=== PATIENT | female | born 1940 | race Caucasian/White ===

== ENCOUNTER 2022-01-17 16:55 | Emergency (ER) | payer OTHER, SELFPAY ==
[2022-01-17 17:07] VITALS: BP 127/71; PULSE 84; RESP 18; TEMP 36.3; O2SAT 100; BMI 28.2
--- NOTE | 2022-01-17 17:44 | CRLHL7_ITS ---
For Patients: As a result of the Century Cures Act, medical imaging exams and procedure reports are released immediately into your electronic medical record. You may view this report before your referring provider. If you have questions, please contact your health care provider. INDICATION: Shortness of breath with exertion, back surgery 1 week ago.. TECHNIQUE: CT chest PE was acquired with 95 cc Isovue 370 IV contrast. COMPARISON: CT of the chest from April 15, 2020. FINDINGS: Heart and vasculature: Contrast opacification of the pulmonary arterial tree is adequate. No pulmonary embolism is identified in the right lower lobar artery branching into the segmental arteries (4/100-117). The. Heart size is normal. Thoracic aorta and pulmonary artery are normal in caliber. Lungs and pleura: Incidentally noted azygos lobe. Stable right anterior pleural calcification with adjacent lobulated pulmonary opacification (5/73). Stable 2 millimeter nodule in the left lower lobe(5/123). no pleural effusions, pleural thickening, or pneumothorax. Lymph nodes/mediastinum: No mediastinal, hilar, or axillary adenopathy. Chest wall: No masses. Upper abdomen: No acute or significant findings. Limited evaluation due to streak artifact from thoracolumbar hardware. Large right renal cyst is noted. Bones: Thoracolumbar fusion hardware is identified. No acute fractures or dislocations are identified. IMPRESSION: Pulmonary embolus in the right lower lobar artery branching into the segmental arteries. No definite evidence for right heart strain. Please note that all CT scans at this facility use dose modulation, iterative reconstruction, and/or weight-based dosing when appropriate to reduce radiation dose to as low as reasonably achievable. Dictated by Michelle Garcia MD @ 01/17/2022 7:29:05 PM (Electronically Signed)
--- NOTE | 2022-01-17 17:47 | ED.SOB ---
HPI - SOB/Dyspnea General Chief Complaint: Shortness of Breath/Dyspnea Stated Complaint: POSSIBLE BLOODCLOT - POST SURGERY Time Seen by Provider: 01/17/22 16:58 History of Present Illness HPI Narrative: This 81-year-old female is sent here from clinic because of shortness of breath with exertion. She had back surgery 8 days ago and states that she feels better in that regard but noticed a few days after the surgery that she became increasingly short of breath with any kind of exertion. At rest she is maintaining normal vital signs and 100 % oximetry. She does not report any unilateral limb swelling or pain. She is not on any blood thinners and does not have a prior history of blood clot. She does not report any chest pain. Related Data Home Medications Medication Instructions Recorded Confirmed acetaminophen 500 mg capsule 1,000 mg PO Q6H PRN 01/17/22 01/17/22 alendronate 70 mg/75 mL oral 70 mg PO QWEEK 01/17/22 01/17/22 solution aspirin 81 mg tablet,delayed 81 mg PO QDAY 01/17/22 01/17/22 release bupropion HCl 150 mg 24 hr tablet, 300 mg PO QAM tab 01/17/22 01/17/22 extended release cholecalciferol PO 01/17/22 lisinopril 5 mg tablet 5 mg PO QDAY 01/17/22 01/17/22 methocarbamol 750 mg tablet 750 mg PO Q6H tab 01/17/22 01/17/22 oxycodone 5 mg capsule 5 mg PO Q4H PRN cap 01/17/22 01/17/22 pramipexole 0.125 mg tablet 0.125 mg PO TID 01/17/22 01/17/22 rosuvastatin 5 mg tablet 5 mg PO QDAY 01/17/22 01/17/22 venlafaxine 150 mg 150 mg PO QDAY 01/17/22 01/17/22 capsule,extended release 24 hr Previous Rx's Medication Instructions Recorded apixaban 5 mg (74 tabs) tablets in See Rx Instructions PO .COMPLEX 01/17/22 a dose pack (Eliquis DVT-PE Treat #74 ea 30D Start) Allergies Allergy/AdvReac Type Severity Reaction Status Date / Time No Known Drug Allergies Allergy Verified 01/17/22 14:23 Review of Systems Status of ROS: Reports: 10 or more systems reviewed and unremarkable except as noted in History and below Narrative: Constitutional: No fevers, no weight gain or loss. Eyes: No discharge. No vision changes. HENT: No congestion, no sore throat, no ear pain. Cardiovascular: No chest pain, no palpitations. Respiratory: No wheezes, no cough. Shortness of breath with exertion. Gastrointestinal: No abdominal pain, no vomiting, no diarrhea. Genitourinary: No dysuria, no hematuria. Musculoskeletal: Normal range of motion. Skin: No rashes, no pruritis. Neurological: No dizziness, weakness, sensory change, speech change. Endo/Heme/Allergies: No bruising or bleeding. No polydipsia. Pysch: no suicidality, no anxiety, no insomnia. All other systems reviewed and are negative. [facility] Surgical History (Updated 01/17/22 @ 18:03 by Leda Rojo RN) History of back surgery Social History Smoking Status: Never smoker Do you use any of these nicotine containing products: None How often do you have a drink containing alcohol: never How often do you have six or more drinks on one occasion: Never AUDIT-C Alcohol total score: 0 Non-prescribed substance use: denies use Exam Narrative: Exam Narrative: Constitutional: Well-developed, well-nourished, no acute distress. HEENT: Normocephalic, atraumatic. Neck: Normal range of motion. Nontender. Supple. Heart: Regular. No murmurs. Normal rate. Intact distal pulses. Lungs: Clear to auscultation. No chest discomfort. No wheezes, rhonchi, or rales. Abdomen: Normal bowel sounds. Nontender. No rebound tenderness. Genitalia: Deferred. Back: She is wearing a back brace. Extremities: Normal range of motion. No injury. Skin: Intact. No rash. Warm. No erythema or pallor. Neurologic: No altered sensation. No weakness. Alert and oriented. Psychiatric: No suicidality. No anxiety or depression. No insomnia. Nursing notes and vitals signs are reviewed. Const: Vital Signs, click to edit/add: Vital Signs - 24 hr 01/17/22 17:07 01/17/22 19:54 Temperature 97.4 F L Pulse Rate [Left P ulse Oximeter] 84 Respiratory Rate 18 16 Blood Pressure [Le ft Upper Arm] 127/71 124/110 H Pulse Oximetry 100 100 Course Vital Signs Vital signs: Initial Vital Signs Temperature 97.4 F L 01/17/22 17:07 Temperature Source Temporal Artery Scan 01/17/22 17:07 Pulse Rate 84 01/17/22 17:07 Respiratory Rate 18 01/17/22 17:07 Blood Pressure 127/71 01/17/22 17:07 Blood Pressure Mean 89 01/17/22 17:07 Blood Pressure Position Sitting 01/17/22 17:07 Pulse Oximetry 100 01/17/22 17:07 Oxygen Delivery Method 01/17/22 17:07 Vital Signs Temperature 97.4 F L 01/17/22 17:07 Pulse Rate 84 01/17/22 17:07 Respiratory Rate 18 01/17/22 17:07 Blood Pressure 127/71 01/17/22 17:07 Pulse Oximetry 100 01/17/22 17:07 Temperature 97.4 F L 01/17/22 17:07 Pulse Rate 84 01/17/22 17:07 Respiratory Rate 16 01/17/22 19:54 Blood Pressure 124/110 H 01/17/22 19:54 Pulse Oximetry 100 01/17/22 19:54 MDM - SOB/Dyspnea MDM Narrative Medical decision making narrative: This patient is sent here from clinic because of shortness of breath with exertion. While at rest she has normal vital signs. She recently had a surgery to her back and is at risk for a blood clot. A D-dimer was not ordered given the recent surgery in the likelihood that it would be elevated regardless of a blood clot present. An IV was established and a CT scan of the chest with contrast was completed. This does show evidence of thromboembolism in the right lower lobe. Patient continues to have normal vital signs while at rest. She is okay to return home but needs anticoagulation. She did receive the 1st dose of Eliquis 10 mg and a prescription for a starter pack of Eliquis is provided. The patient is instructed to follow-up with her primary physician or return if worsening. Imaging Data CT scan - chest: Radiologist's impression: Pulmonary embolus in the right lower lobar artery branching into the segmental arteries. No definite evidence for right heart strain. Discharge Plan Discharge Clinical Impression: Pulmonary embolism Condition: Unchanged Instructions: Blood Thinners (ED) Additional Instructions: Pulmonary embolism in the right lower lobe. Take Eliquis as prescribed. Follow up with primary physician in 1-2 weeks or return if worsening symptoms occur. Prescriptions: New Eliquis DVT-PE Treat 30D Start 5 mg (74 tabs) tablets,dose pack See Rx Instructions PO .COMPLEX Qty: 74 0RF Rx Instructions: orally per package directions No Action bupropion HCl 150 mg tablet extended release 24 hr 300 mg PO QAM 0RF cholecalciferol PO 0RF methocarbamol 750 mg tablet 750 mg PO Q6H 0RF pramipexole 0.125 mg tablet 0.125 mg PO TID 0RF rosuvastatin 5 mg tablet 5 mg PO QDAY 0RF venlafaxine 150 mg capsule,extended release 24hr 150 mg PO QDAY 0RF oxycodone 5 mg capsule 5 mg PO Q4H PRN0RF lisinopril 5 mg tablet 5 mg PO QDAY 0RF acetaminophen 500 mg capsule 1,000 mg PO Q6H PRN0RF alendronate 70 mg/75 mL solution 70 mg PO QWEEK 0RF aspirin 81 mg tablet,delayed release (DR/EC) 81 mg PO QDAY 0RF Follow Up/Referrals: Savanna Feldman PA-C [Primary Care Provider] - Stand Alone Forms: iFulfillment Info Instructions
[2022-01-17 19:54] VITALS: BP 124/110; RESP 16; O2SAT 100
[2022-01-17] MEDS: APIXABAN 5 MG TABLET 10 MG PO (20:06)
== END 2022-01-17 20:19 | disposition home or self-care (01) ==
PROVIDERS: Emergency Provider Emergency Medicine Emergency Medical Services; PCP Physician Assistant Medical
DX: I26.99 Other pulmonary embolism without acute cor pulmonale (principal)
CPT/HCPCS: 71260; 99284; 99285; A9270; Q9967

== ENCOUNTER 2022-03-05 09:53 | Outpatient (CLI) | payer OTHER, SELFPAY | END 2022-03-05 09:54 | disposition home or self-care (01) | LOC: LKVREF 09:54 | PROVIDERS: PCP Physician Assistant Medical; Visit Provider Physician Assistant Medical | DX: Z00.00 Encounter for general adult medical examination without abnormal findings (principal); R06.00 Dyspnea, unspecified; I26.99 Other pulmonary embolism without acute cor pulmonale | CPT/HCPCS: 84484 ==

== ENCOUNTER 2022-04-11 14:15 | Outpatient (CLI) | payer OTHER, SELFPAY ==
[2022-04-11 21:33] LABS: Iron* 66 ug/dL (37-170)
[2022-04-11 21:42] LABS: Percent Iron Saturation 18 % (20-50); Total Iron Binding Capacity 361 ug/dL (265-497)
[2022-04-11 22:23] LABS: Vitamin B12* 328 pg/mL (243-894)
== END 2022-04-11 14:16 | disposition home or self-care (01) ==
PROVIDERS: PCP Physician Assistant Medical; Visit Provider Physician Assistant Medical
DX: D64.9 Anemia, unspecified (principal); R10.9 Unspecified abdominal pain
CPT/HCPCS: 82607; 83540; 83550

== ENCOUNTER 2022-04-19 07:52 | Outpatient (CLI) | payer OTHER, SELFPAY ==
--- NOTE | 2022-04-19 08:00 | CRLHL7_ITS ---
For Patients: As a result of the Century Cures Act, medical imaging exams and procedure reports are released immediately into your electronic medical record. You may view this report before your referring provider. If you have questions, please contact your health care provider. Indication: Hematuria Technique: Noncontrast CT abdomen and pelvis Please note that all CT scans at this facility use dose modulation, iterative reconstruction, and/or weight-based dosing when appropriate to reduce radiation dose to as low as reasonably achievable. Comparison: 12/16/2018 Findings: Mild scarring within the right lower lobe medially. No pleural effusion. Stable 2-3 millimeter nodule left lower lobe. Normal noncontrast enhanced liver. Gallbladder normal without calcified gallstones or biliary obstruction. Normal pancreas. Spleen normal. Left adrenal gland and left kidney normal. Similar exophytic cyst arising from the upper pole of the right kidney measuring 7.5 cm and exophytic cyst arising from the lateral right kidney measuring 3.5 cm. Dense vascular calcifications. No renal calcifications. No hydronephrosis. Normal ureters and bladder. No pelvic soft tissue mass. Colonic diverticulosis. No diverticulitis. No evidence of appendicitis. No free air or free fluid. No abscess. No adenopathy. Fatty atrophy of the right anterior gluteal musculature. Thoracolumbar fusion through the iliac bones. Impression: No renal, ureteral or bladder stones. No hydronephrosis or perinephric stranding. Stable simple exophytic cysts right kidney. Chronic colonic diverticulosis without diverticulitis. Please note that all CT scans at this facility use dose modulation, iterative reconstruction, and/or weight-based dosing when appropriate to reduce radiation dose to as low as reasonably achievable. Dictated by Shaquille Del Toro MD @ 04/19/2022 11:28:14 AM (Electronically Signed)
== END 2022-04-19 07:53 | disposition home or self-care (01) ==
LOC: CT 07:53
PROVIDERS: PCP Physician Assistant Medical; Visit Provider Physician Assistant Medical
DX: R31.9 Hematuria, unspecified (principal); N28.1 Cyst of kidney, acquired; K57.30 Diverticulosis of large intestine without perforation or abscess without bleeding
CPT/HCPCS: 74176

== ENCOUNTER 2022-12-24 08:34 | Outpatient (CLI) | payer OTHER, SELFPAY | END 2022-12-24 08:35 | disposition home or self-care (01) | PROVIDERS: PCP Physician Assistant Medical; Visit Provider Physician Assistant Medical | DX: E78.5 Hyperlipidemia, unspecified (principal); I10 Essential (primary) hypertension; R06.00 Dyspnea, unspecified | CPT/HCPCS: 80061; 83880 ==

== ENCOUNTER 2022-12-28 07:39 | Outpatient (CLI) | payer OTHER, SELFPAY ==
--- NOTE | 2022-12-28 08:00 | CRLHL7_ITS ---
For Patients: As a result of the Century Cures Act, medical imaging exams and procedure reports are released immediately into your electronic medical record. You may view this report before your referring provider. If you have questions, please contact your health care provider. INDICATION: Leg pain. History of pulmonary emboli. COMPARISON: September 16, 2020 TECHNIQUE: A compression venous ultrasound exam was performed of the left lower extremity using galloway-scale imaging, color Doppler and spectral Doppler analysis. FINDINGS: Sonographic imaging of the left lower extremity demonstrates normal compressibility and color Doppler venous blood flow within the common femoral vein, deep femoral vein, and the proximal greater saphenous vein. Within the thigh, the femoral vein is patent and compressible. At a lower level, the popliteal and posterior tibial veins also show normal compressibility and color Doppler venous blood flow. Minor`s cyst left popliteal fossa measuring 8.9 x 2.0 x 1.6 cm. This has enlarged compared to the prior study. There is a venous varix in the region left popliteal fossa as well. Limited imaging of the contralateral groin demonstrates a normal spectral waveform and color Doppler venous blood flow within the right common femoral vein. IMPRESSION: Normal venous ultrasound exam. No evidence of deep vein thrombosis within the left lower extremity. Enlarging Minor`s cyst left popliteal fossa. Dictated by Douglas Stahl MD @ 12/28/2022 9:44:12 AM (Electronically Signed)
== END 2022-12-28 07:40 | disposition home or self-care (01) ==
LOC: US 07:40
PROVIDERS: PCP Physician Assistant Medical; Visit Provider Physician Assistant Medical
DX: M79.89 Other specified soft tissue disorders (principal); M71.22 Synovial cyst of popliteal space [Baker], left knee; M79.605 Pain in left leg
CPT/HCPCS: 93971

== ENCOUNTER 2023-01-01 08:13 | Outpatient (CLI) | payer OTHER, SELFPAY ==
--- NOTE | 2023-01-01 08:30 | CRLHL7_ITS ---
For Patients: As a result of the Century Cures Act, medical imaging exams and procedure reports are released immediately into your electronic medical record. You may view this report before your referring provider. If you have questions, please contact your health care provider. [facility] ??? MOBILE IMAGING SERVICES MYOCARDIAL PERFUSION SCAN, 01/01/2023 CLINICAL HISTORY: 82-year-old female. Shortness of breath. Hypertension. Elevated lipids. Family history of heart disease. Height 4 feet 10 inches, weight 142 pounds. TECHNIQUE: (Resting SPECT and stress gated SPECT with wall motion and ejection fraction) Stress: Pharmacologic ???regadenoson (walking protocol, 0.4 mg IV) Dose (Stress/Rest): 32.5 mCi technetium-labeled sestamibi/8.8 mCi technetium-labeled sestamibi Comparison: None FINDINGS: There is good uptake of activity by the left ventricle. No left ventricular enlargement is noted. End-diastolic volume 51 mL. End-systolic volume 20 mL. There are no significant fixed or reversible defects identified. The gated images demonstrate a normal left ventricular ejection fraction of 61%. No regional wall motion abnormalities are identified. IMPRESSION: 1) No evidence of significant myocardial ischemia or infarction. 2) Normal left ventricular ejection fraction of 61%. This study was jointly reviewed by Radiology and Cardiology. MATT HUBBARD M.D. Diagnostic/Nuclear Medicine Radiologist [email or web address] Transcribed: 6:31 p.m. ALEX ZARAGOZA M.D. Department of Cardiology RD/Dictated by: Matt Hubbard MD @ 01/01/2023 2:01:00 PM (Electronically Signed)
[2023-01-01] MEDS: SODIUM CHLORIDE 0.9 % (FLUSH) 10 ML SYRINGE IVF (09:56)
[2023-01-01] MEDS: REGADENOSON 0.4 MG/5 ML SYRINGE IVP (09:56)
[2023-01-01 10:02] VITALS: BP 131/77; PULSE 79; RESP 16
--- NOTE | 2023-01-01 12:02 | W.PM.STED ---
Stress Test Note Date Date of test: 01/01/23 Providers Primary care provider: Savanna Feldman Stress test physician: Salbador Burden Stress Test Note Stress test ordered: Lexiscan Indication for test: Shortness of Breath Stress test medicine: Lexiscan Results discussion: Patient is very nice lady presents for the above test, risks benefits and side effects of Lexiscan are discussed with her she would like to proceed pretest EKG. Normal sinus rhythm with a ventricular rate of 56, blood pressure 134 on 78. Standard infusion of Lexiscan is done over 5 minute. , her maximum heart rate was 100, she had no symptoms. And did well with that test. Review of the test show no acute changes suggestive of ischemia there is no dysrhythmias, and she recovered normally. Impression: Negative electrographic portion of Lexiscan, successfully administered Follow up suggested: Patient will be discharged home, nuclear portion will be read by nuclear Medicine, clinical correlation with this will be needed by ordering physician, patient left this testing facility in good condition back to baseline.
== END 2023-01-01 10:35 | disposition home or self-care (01) ==
LOC: STRESS 08:13
PROVIDERS: PCP Physician Assistant Medical; Visit Provider Family Medicine
DX: R06.02 Shortness of breath (principal)
CPT/HCPCS: 78452; 93016; 93017; A9500; J2785

== ENCOUNTER 2023-03-28 09:30 | Outpatient (RCR) | payer OTHER, SELFPAY ==
--- NOTE | 2023-01-22 11:57 | OT.OPOE ---
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.11XA Date of Onset about 5 weeks ago Other Precautions Medications: alendronate 70 mg PO .Every 7 Days aspirin 81 mg PO QDAY bupropion HCl (Wellbutrin SR) 100 mg PO QAM cholecalciferol (vitamin D3) 2 ,000 units PO DAILY escitalopram oxalate (Lexapro) 10 mg PO QDAY lisinopril 20 mg PO QDAY pramipexole 0.25 mg PO TID rosuvastatin 5 mg PO QDAY venlafaxine ER 37.5 mg PO QDAY Other Conditions NEW: L wrist pain-tingling and numbness Other PMH includes but is not limited to: Osteopenia; Other specified disorders of bone density and structure; Osteoarthritis; Obstructive sleep apnea syndrome: 12/2022- saw ENT; Severe obstructive sleep apnea; new machine ordered and patient reports using this every night. Pain in left knee; Hypertension; Hyperlipidemia; Fibrocystic breast disease (FCBD); Diffuse cystic mastopathy of unspecified breast; Degeneration of intervertebral disc of lumbar region; Other intervertebral disc degeneration, lumbar region; Anxiety disorder, unspecified; Allergic rhinitis; Right hip pain; Depression, unspecified; Anemia; Tubular adenoma; Unspecified rotator cuff tear or rupture of unspecified shoulder, not specified as traumatic; Spinal stenosis; Restless legs syndrome; Renal cyst: of kidney, acquired. Pain in lower extremity due to sciatica; Cardiac murmur, unspecified Echocardiogram 11/23/2022- shoe aortic stenosis 1.Normal left ventricular size , mildly increased wall thickness, EF 77% 2.2. Aortic valve is calcified , moderate to severe stenosis and mild regurgitation. 3.Mitral valve is sclerotic, trace mitral regurgitation 4.Tricuspid valve is normal. Medical/Functional History Medical History Reviewed Yes Prior Level of Function/Mobility Patient is a pleasant 82 year old active female who lives alone and is able to meet all her ADL/IADL daily needs Independently. She ambulates w /o a device and enjoys spending time with her family (grandchildren, great- grandchildren), quilting and gardening. 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 I just woke up in the middle of the night with tingling and numbness in the tips of my fingers Pain Assessment Pain Present Pain Present Pain Reported Location Left Wrist Description Burning,Radiating,Stabbing, Shooting Intensity 10 Range of Motion and Strength Shoulder Range of Motion and Strength Shoulder Range of Motion and Strength ROM is WNL, Strength is 3+/5 and functional in bilateral shoulders Elbow/Forearm Range of Motion and Strength Elbow/Forearm Range of Motion and ROM is WNL, Strength is 3+/5 Strength and functional in bilateral elbows Wrist Range of Motion and Strength Wrist Range of Motion and Strength ROM is WNL/functional with no reports of patient unable to do a daily task/ADL due to limited ROM, Strength limited, see Oil [employer] Drafter Strengths/Hand pinches Hand/Finger/Thumb Range of Motion and Strength Hand/Finger/Thumb Range of Motion and R hand: wrist flexion 45 Strength degrees and extension 40 degrees L hand: wrist felxion 45 degrees and extension 60 degrees *measured on the ulnar side of the hand Hand Pinch/[employer]fter Strength Hand Right [employer]fter Strength Position 1 (lbs) 14 [employer]fter Strength Position 2 (lbs) 11 Lateral Pinch Strength (lbs) 5 Three Point Pinch (lbs) 5 Tip Pinch Strength (lbs) 4 Left [employer]fter Strength Position 1 (lbs) 11 [employer]fter Strength Position 2 (lbs) 10 Lateral Pinch Strength (lbs) 5 Three Point Pinch (lbs) 5 Tip Pinch Strength (lbs) 4 OT Objective Data Skin/Wounds/Edema Comments Skin is intact, very mild edema present on the palm side of the wrist, no wounds, visible arthritis in multiple digits Additional Information Objective Additional Information Therapist reviewed the results of X-ray: Findings: Narrowing and spurring at the 1st carpometacarpal joint with multiple chronic surrounding ossicles. Milder narrowing and spurring at the radial scaphoid and triscaphe joints. Hypertrophic changes at the distal radioulnar joint. Chondrocalcinosis of the TFCC. Degenerative changes at the metacarpophalangeal joints . No acute fracture. No erosions. Impression: Multifocal degenerative joint disease. Upper Extremity Special Tests Degenerative Arthritis Hand Trapeziometacarpal Joint Grind Test Positive Left,Positive Right Median Nerve-Carpal Tunnel Wrist Phalen Test Negative Right,Positive Left Wrist Tinel Test left OT Problems Problems Problems Decreased Strength,Pain, Sensory Sensitivity,Lifting, Gripping,Pinching Other Problems Opening Containers Patient Potential Good Assessment Assessment Assessment This is a pleasant 82 year old R hand dominant female who presented to her PCP on January 16 with reports of left wrist/hand/forearm pain. Provider wrote order for skilled OT to treat for L hand carpal tunnel symptoms. It is patient's goal to avoid having surgery on the L hand, she previously had carpal tunnel release surgery on the R hand 7 years prior. No acute injury, symptoms just began one night when she was in bed (about 5 weeks ago). Plan for conservative management through skilled OT using modalities, teaching patient activity modifications, developing a HEP and improving strength. Patient purchased a pre-jay/over the counter wrist brace about 3 weeks ago and has been wearing this at night. Therapist instructed her to wear this with activity that involves heavy use of the L hand (example: laundry, cooking, quilting and gardening). Occupational Therapy Treatment Plan - OP Potential Rehabilitation Potential Good Barriers Barriers to goal attainment none Set Goals Goals Set with Patient Yes Goals Goals 1. With patient attending therapy sessions 1-2x/week, therapist will use modalities & manual treatment allowing patient to have increased active movement (without increased pain symptoms) when participating in her leisure activities (quilting and gardening). 2. Patient will wean from wearing the L hand/wrist brace w/o from 8 hours during the daytime hours to less than 4 hours 3. Patient will be Indep with a HEP 4. 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 from 11 lbs to >14 lbs in order to return to everyday tasks w/o fear of dropping items Target Date 8 Weeks: By Mar 19 2023 Treatment Plan Treatment Plan Evaluation,Edema Control, Iontophoresis,Joint Mobilization,Manual Therapy, Ultrasound,Therapeutic Exercise,Therapeutic Activities,Self Care/Home Management,Education Expected Frequency 1-2x Week Expected Duration 8-10 Weeks Comment Summary Patient reports that she doesn 't sleep on her side, she sleeps on her back every night as she is wearing a CPAP at [facility] Home Program Home Program Home Program Initiated Home Program Specifics Patient was given a handout for Median Nerve Glides but will need review at next session. Handout given for finger/hand stretching; Tendon Glides and Thera-Putty for Hand/[employer]fter Strengthening Certification Certification I Certify That: Therapy Services Provided, Therapy Plan Established, Therapy Plan Reviewed Recertification Information Recertification Information Initial Certification Date 01/22/23 Recertification Due Date 04/22/23 Provider Signature Shows Agreement With POC & Medical Necessity Physician Comment/Change Comment or Changes Physician NPI Number #
== END 2023-05-23 15:17 | disposition home or self-care (01) ==
PROVIDERS: PCP Physician Assistant Medical; Visit Provider Physician Assistant Medical
DX: M25.532 Pain in left wrist (principal); Z51.89 Encounter for other specified aftercare
CPT/HCPCS: 97035; 97110; 97140; 97166; X5282

== ENCOUNTER 2023-04-15 10:00 | Day surgery (SDC) | payer OTHER, SELFPAY ==
[2023-04-15] VITALS (7 sets, daily range): BP systolic 121–150; BP diastolic 61–94; PULSE 58–68; RESP 14–18; TEMP 36.7–36.9; O2SAT 96–100; BMI 26.9
--- OUTSIDE RECORDS SUMMARY | 2023-04-15 10:02 | XMS_ITS | Continuity of Care Document ---
Author Name Unknown Organization [facility] Address [address] [place] [address] Phone Care Team Providers Care Cpc Name Role Phone Kasia Alex Unavailable Unavail able Medications Medication Instructions Dosage Effective Dates (start - stop) Status Comments Do Not Prescribe tri pt: meds, calls , appts etc are all to be done at tri - Active Procedures Procedure Date PSF, Thoracic - AR PSF - Additional Level(s) - AR Laminectomy, Thoracic 1-2 Segments (Sten osis) - AR Posterior Instrumentation, 3-6 Segments - PA PSF, Thoracic PSF - Additional Level(s) Laminectomy, Thoracic 1-2 Segments (Sten osis) Posterior Instrumentation, 3-6 Segments Allograft, Morcelized, and/or BMP Autograft, From Same Incision TLIF - Includes PSF at the same level - PA HARRIS FACETC/FRMT ARTHRD LUM 1 PSF - Additional Level(s) - AR Posterior Instrumentation, 3-6 Segments - PA PEEK/ Cage/ Implant, For Interbody Fusio n - PA TLIF - Includes PSF at the same level Ju HARRIS FACETC/FRMT ARTHRD LUM 1 PSF - Additional Level(s) Posterior Instrumentation, 3-6 Segments PEEK/ Cage/ Implant, For Interbody Fusio n PSF, Lumbar - PA PSF - Additional Level(s) - PA 20 Lami, Facetectomy/Foraminotomy, Lumbar ( Stenosis) Lami, Facetectomy/Foraminotomy - Additio nal Level(s) - PA Posterior Instrumentation, 3-6 Segments - PA Iliac Bolts / Pelvic Fixation - PA PEEK/ Cage/ Implant, For Interbody Fusio n - PA PSF, Lumbar PSF - Additional Level(s) ALIF / OLIF Anterior Lumbar Interbody Fu lisa - Cosurgeon Anterior Interbody Fusion - Additional L evel(s) Lami, Facetectomy/Foraminotomy, Lumbar ( Stenosis) Lami, Facetectomy/Foraminotomy - Additio nal Level(s) Posterior Instrumentation, 3-6 Segments PEEK/ Cage/ Implant, For Interbody Fusio n Iliac Bolts / Pelvic Fixation 0 Autograft, From Same Incision 0 Allograft, Morcelized, and/or BMP Advance Directives Directive Yes / No Effective Date File Name No Information Encounters Encounter Description Practice Location Reason(s) For Visit Diagnoses Date Provider Providers Copied on Encounter [facility], [address], [place], [id number], [place] tel:[phone] [facility] No Information Saw Pedroza. [facility], [address], [address], [place], [place], [id number], [place]. tel:[phone] Referring Provider: Jose Maria Marina, [facility] [address], [place], [address]. tel:[phone] [facility], [address], [place], [id number], [place] tel:[phone] [facility] No Information Laina Moise. [facility], [address], [place], [place], [address], [place]. tel:[phone] Referring Provider: Jose Maria Marina, [facility] [address], [place], [address]. tel:[phone] [facility], [address], [place], [id number], [place] tel:[phone] [facility] No Information Saw Pedroza. [facility], [address], [address], [place], [place], [address], [place]. tel:[phone] Referring Provider: Jose Maria Marina, [facility] [address], [place], [address]. tel:[phone] [facility], [address], [place], [id number], [place] tel:[phone] [facility] No Information Laina Moise. [facility], [address], [place], [place], [address], [place]. tel:[phone] Referring Provider: Jose Maria Marina, [facility] [address], [place], [address]. tel:[phone] [facility], [address], [place], [id number], [place] tel:[phone] [facility] No Information Jonny Ledesma. [facility], [address], [place], [place], [address], [place]. tel:[phone] Referring Provider: Jose Maria Marina, [facility] [address], [place], [address]. tel:[phone] [facility], [address], [place], [id number], [place] tel:[phone] [facility] No Information Laina Moise. [facility], [address], [place], [place], [address], [place]. tel:[phone] Referring Provider: Jose Maria Marina, [facility] [address], [place], [address]. tel:[phone] [facility], [address], [place], [place], [id number], tel:[phone] [facility] No Information Laina Moise. [facility], [address], [place], [place], [address], [place]. tel:[phone] Family History Family Member Type Diagnosis Age At Onset No Information Payers Payer name Insurance type Covered libertarian ID Authoriza ticristofer(s) [employer] Medicare Gold Choice Beatriz TAVERAS [id number] Social History Type Description Quantity Date Captured Comments Sex Female Smoking Status No Information Chief Complaint And Reason For Visit No Information Reason For Referral Reason For Referral No Information History Of Present Illness Encounter Date Complaint History Of Prese nt Illness No Information Functional Status Date Functional Assessmen t No Information Instructions Date Instruction Additional Infor mation No Information Assessments Type Assessment Date No Information Patient Care Teams Name Effective Dates (start - stop) Status Members No Information
--- OUTSIDE RECORDS SUMMARY | 2023-04-15 10:03 | XMS_ITS | Continuity of Care Document ---
Author Name Unknown Organization [facility] Address [address] [place] [address] Phone Care Team Providers Care Awning Hanger Supervisor Name Role Phone Kasia Alex Unavailable Unavail able Medications Medication Instructions Dosage Effective Dates (start - stop) Status Comments Do Not Prescribe tri pt: meds, calls , appts etc are all to be done at tri - Active Procedures Procedure Date PSF, Thoracic - [place] PSF - Additional Level(s) - [place] Laminectomy, Thoracic 1-2 Segments (Sten osis) - [place] Posterior Instrumentation, 3-6 Segments - PA PSF, Thoracic PSF - Additional Level(s) Laminectomy, Thoracic 1-2 Segments (Sten osis) Posterior Instrumentation, 3-6 Segments Allograft, Morcelized, and/or BMP Autograft, From Same Incision TLIF - Includes PSF at the same level - PA HARRIS FACETC/FRMT ARTHRD LUM 1 PSF - Additional Level(s) - [place] Posterior Instrumentation, 3-6 Segments - PA PEEK/ [...] [address], [place], [id number], [place] tel:[phone] [facility] No Information Saw Pedroza. [facility], [address], [address], [place], [place], [address], [place]. tel:[phone] Referring Provider: Jose Maria Marina, [facility] [address], [place], [address]. tel:[phone] [facility], [address], [place], [id number], [place] tel:[phone] [facility] No Information Laina Moise. [facility], [address], [place], [place], [address], [place]. tel:[phone] Referring Provider: Jose Maria Marina, [facility] [address], [place], [address]. tel:[phone] [facility], [address], [place], [id number], [place] tel:[phone] [facility] No Information Saw Pedroza. [facility], [address], [address], [place], [place], [address], [place]. tel:[phone] Referring Provider: Jose Maria Marina, [facility] [address], [place], [address]. tel:[phone] [facility], [address], [place], [id number], [place] tel:[phone] [facility] No Information Laina Moise. [facility], [address], [place], [place], [address], [place]. tel:[phone] Referring Provider: Jose Maria Marina, [facility] [address], [place], [address]. tel:[phone] [facility], [address], [place], [id number], [place] tel:[phone] [facility] No Information Jonny Ledesma. [facility], [address], [place], [place], [address], [place]. tel:[phone] Referring Provider: Jose Maria Marina, [facility] [address], [place], [address]. tel:[phone] [facility], [address], [place], [id number], [place] tel:[phone] [facility] No Information Laina Moise. [facility], [address], [place], [place], [id number], [place]. tel:[phone] Referring Provider: Jose Maria Marina, [facility] [address], [place], [address]. tel:[phone] [facility], [address], [place], [place], [id number], tel:[phone] [facility] No Information Laina Moise. [facility], [address], [place], [place], [address], [place]. tel:[phone] Family History Family Member Type Diagnosis Age At Onset No Information Payers Payer name Insurance type Covered constitution party ID Authoriza ticristofer(s) [employer] Medicare Gold Choice Beatriz TAVERAS [id number] Social History Type Description Quantity Date [...]
[2023-04-15] MEDS: BUPIVACAINE 0.5% 30 ML INJECTION (10:30)
[2023-04-15] MEDS: ETHYL CHLORIDE 1 APPLICATION 1 APPLIC TOPICAL (10:30)
[2023-04-15] MEDS: NEOMYCIN/BACITRACIN/POLYMYXIN B 1 APPLIC TOPICAL (11:43)
--- NOTE | 2023-04-15 11:43 | PM.ORPRC ---
Procedure Note Date of procedure: 04/15/23 Procedure: PREOPERATIVE DIAGNOSIS: 1. Left carpal tunnel syndrome POSTOPERATIVE DIAGNOSIS: 1. Left carpal tunnel syndrome PROCEDURE: 1. Left open carpal tunnel release SURGEON: Joshua Cruz MD. AUTO ENGINE MECHANIC: Mitchell Rojo ANESTHESIA: Local anesthetic (50:50 mixture of 1% lidocaine with epi and 0.5% marcaine plain) - 10ml total IMPLANTS: None EBL: 2 mL TOURNIQUET: None COMPLICATIONS: None evident INDICATIONS: The patient is a pleasant 82-year-old female who has experienced left hand numbess/tingling affecting the radial 3.5 digits for multiple months. It has progressively gotten worse. Nonoperative management has been tried and failed, and therefore surgery was recommended. DESCRIPTION OF PROCEDURE: Following a thorough discussion of risks, benefits, and alternatives consent was obtained and the operative extremity was marked. The patient was brought to the operating room and placed supine on the operating table. Local anesthesia induction was undertaken in preop holding. No antibiotics were administered as this was planned to be a local case only. Proper time-out was performed identifying proper patient, site, and procedure. The operative extremity was prepped and draped in the appropriate sterile fashion using ChloraPrep. An incision was made in line with the radial border of the ring finger beginning 1 cm distal to the distal wrist crease and progressing for another 2.5cm distal. Caution was taken to stay proximal to Cook's cardinal line. Sharp incision through the skin, subcutaneous tissue, and palmar fascia was performed. The thenar musculature was bluntly elevated off the transverse carpal ligament. The ligament was directly visualized, and divided sharply with a 15 blade. This was released from its most proximal to the most distal extent. Metzenbaum scissor was also utilized to release the fascia extension proximally. We confirmed complete release of the transverse carpal ligament. Closure was performed with 4-O nylon in interrupted fashion. Soft dressings were applied, and the patient was transferred to the recovery room in stable condition. PLAN: 1. Encourage elevation of the operative extremity. 2. Range of motion of the fingers and hand/wrist as tolerated. 3. Ibuprofen/acetaminophen and/or oxycodone as needed for pain control. 4. Follow up with PA visit or nurse visit in 12-16 days for wound check and suture removal.
--- NOTE | 2023-04-15 11:49 | SUR.PREOP ---
SAME DAY SURGERY LOCAL INJECTION SITE VERIFICATION WAS PERFORMED BY SURGEON/PA AND PATIENT PRIOR TO LOCAL ANESTHETIC BEING INJECTED TO OPERATIVE SITE. 1030
== END 2023-04-15 12:31 | disposition home or self-care (01) ==
PROVIDERS: PCP Physician Assistant Medical; Visit Provider Orthopaedic Surgery Sports Medicine
PROC: (CPT 64721; principal; 2023-04-15 12:00)
DX: G56.02 Carpal tunnel syndrome, left upper limb (principal)
CPT/HCPCS: 64721; J0665

== ENCOUNTER 2023-06-19 13:51 | Outpatient (CLI) | payer OTHER, SELFPAY ==
--- OUTSIDE RECORDS SUMMARY | 2023-06-19 13:53 | XMS_ITS | Continuity of Care Document ---
Author Name Unknown Organization [facility] Address [address] [place] [address] Phone Care Team Providers Care Rubber Stamp Dies Inspector Name Role Phone Kasia Alex Unavailable Unavail able Medications Medication Instructions Dosage Effective Dates (start - stop) Status Comments Do Not Prescribe tri pt: meds, calls , appts etc are all to be done at tri - Active Procedures Procedure Date PSF, Thoracic - [place] PSF - Additional Level(s) - [place] Laminectomy, Thoracic 1-2 Segments (Sten osis) - [place] Posterior Instrumentation, 3-6 Segments - PA PSF, Thoracic PSF - Additional Level(s) Laminectomy, Thoracic 1-2 Segments (Sten osis) Posterior Instrumentation, 3-6 Segments Allograft, Morcelized, and/or BMP Autograft, From Same Incision TLIF - Includes PSF at the same level - PA HARRIS FACETC/FRMT ARTHRD LUM 1 PSF - Additional Level(s) - [place] Posterior Instrumentation, 3-6 Segments - PA PEEK/ [...] [address], [place], [id number], [place] tel:[phone] [facility] No Information Saw Pedroza. [facility], [address], [address], [place], [place], [address], [place]. tel:[phone] Referring Provider: Jose Maria Marina, [facility] [address], [place], [address]. tel:[phone] [facility], [address], [place], [id number], [place] tel:[phone] [facility] No Information Laina Moise. [facility], [address], [place], [place], [address], [place]. tel:[phone] Referring Provider: Jose Maria Marina, [facility] [address], [place], [address]. tel:[phone] [facility], [address], [place], [address], [place] tel:[phone] [facility] No Information Saw Pedroza. [facility], [address], [address], [place], [place], [address], [place]. tel:[phone] Referring Provider: Jose Maria Marina, [facility] [address], [place], [address]. tel:[phone] [facility], [address], [place], [address], [place] tel:[phone] [facility] No Information Laina Moise. [facility], [address], [place], [place], [address], [place]. tel:[phone] Referring Provider: Jose Maria Marina, [facility] [address], [place], [address]. tel:[phone] [facility], [address], [place], [address], [place] tel:[phone] [facility] No Information Jonny Ledesma. [facility], [address], [place], [place], [address], [place]. tel:[phone] Referring Provider: Jose Maria Marina, [facility] [address], [place], [address]. tel:[phone] [facility], [address], [place], [id number], [place] tel:[phone] [facility] No Information Laina Moise. [facility], [address], [place], [place], [address], [place]. tel:[phone] Referring Provider: Jose Maria Marina, [facility] [address], [place], [address]. tel:[phone] [facility], [address], [place], [place], [address], tel:[phone] [facility] No Information Laina Moise. [facility], [address], [place], [place], [address], [place]. tel:[phone] Family History Family Member Type Diagnosis Age At Onset No Information Payers Payer name Insurance type Covered constitution party ID Authoriza ticristofer(s) [employer] Medicare Gold Choice Beatriz TAVERAS [id number] Social History Type Description Quantity Date [...]
--- NOTE | 2023-06-19 14:00 | CRLHL7_ITS ---
For Patients: As a result of the Century Cures Act, medical imaging exams and procedure reports are released immediately into your electronic medical record. You may view this report before your referring provider. If you have questions, please contact your health care provider. INDICATION: Pain in legs COMPARISON: 12/28/2022 TECHNIQUE: Rowe-scale, color, and duplex Doppler imaging of the examined veins. Compression and augmentation attempted where anatomically and clinically feasible. FINDINGS: Laterality: Left Examined veins: Common femoral, femoral, popliteal, peroneal, posterior tibial Greater saphenous The peroneal veins are duplicated. Nonocclusive thrombus in 1 of the left peroneal veins. There is occlusive thrombus in the left greater saphenous vein from the mid thigh to the calf, extending in the varicose veins. Thrombus appears acute to subacute. Otherwise, the examined veins are patent with normal color Doppler flow and a normal venous waveform on duplex Doppler. Where possible, there is normal compression and normal augmentation of flow. Popliteal fossa Minor cyst that measures 5.7 x 2.6 x 1.3 cm. The right common femoral vein was sampled for comparison and is normal. No waveform abnormalities to suggest central occlusion. IMPRESSION: 1. Nonocclusive deep vein thrombus in a duplicated left peroneal vein in the calf. 2. Occlusive superficial venous thrombus from the mid left greater saphenous vein and associated varicose veins through the calf. 3. Left popliteal fossa Minor cyst. Dictated by Rosa Benson MD @ 06/19/2023 3:04:29 PM (Electronically Signed)
[2023-06-19 15:11] LABS: Hematocrit 43.5 % (33.0-51.0); Hemoglobin* 14.1 gm/dL (12.0-16.0); Mean Corpuscular HGB Conc 32 gm/dL (32-36); Mean Corpuscular Hemoglobin 31 pg (26-34); Mean Corpuscular Volume 95 fL (80-100); Platelet Count* 226 K/uL (140-440); Red Blood Count 4.56 m/uL (4.00-5.20)
[2023-06-19 15:15] LABS: INR 0.91 (0.91-1.10); Partial Thromboplastin Time* 28 Seconds (23-33); Prothrombin Time 12.7 Seconds
[2023-06-19 15:16] LABS: Slide Review Reflex No
[2023-06-19 15:37] LABS: Albumin* 4.7 g/dL (3.3-5.0); Chloride* 106 mmol/L (96-114); Potassium* 4.2 mmol/L (3.6-5.1); Sodium* 142 mmol/L (135-149)
[2023-06-19 15:39] LABS: Anion Gap 6 mEq/L (7-15); Bilirubin Total* 0.5 mg/dL (0.1-1.5); Carbon Dioxide* 30 mmol/L (20-32); Creatinine* 0.7 mg/dL (0.5-1.5); Estimated Glomerular Filt Rate 87 ml/min
[2023-06-19 15:40] LABS: Alanine Aminotransferase* 20 U/L (4-35); Alkaline Phosphatase* 113 U/L (40-150); Aspartate Amino Transferase* 33 U/L (12-35); Blood Urea Nitrogen* 19 mg/dL (7-30); Calcium* 9.4 mg/dL (8.4-10.6); Glucose* 78 mg/dL (60-115)
== END 2023-06-19 13:52 | disposition home or self-care (01) ==
PROVIDERS: PCP Physician Assistant Medical; Visit Provider Emergency Medicine
DX: M79.669 Pain in unspecified lower leg (principal); I82.402 Acute embolism and thrombosis of unspecified deep veins of left lower extremity; I82.492 Acute embolism and thrombosis of other specified deep vein of left lower extremity; I82.409 Acute embolism and thrombosis of unspecified deep veins of unspecified lower extremity
CPT/HCPCS: 36415; 80053; 85027; 85610; 85730; 93971

== ENCOUNTER 2023-11-11 11:07 | Outpatient (CLI) | payer OTHER, SELFPAY ==
--- OUTSIDE RECORDS SUMMARY | 2023-11-11 11:11 | XMS_ITS | Clinical Summary ---
Author Name Unknown Organization [facility] Address [address] [address] Care Team Providers Care Lead Electrician Name Role Phone Tip Barth APRN, CNP Primary Care Provid er Source Comments You are receiving this document as you are listed as the primary care provider,follow-up provider, or the patient has been referred to you for consultation.This is in compliance with the Medicare and[facility] EHR Incentive Program,which states Providers who transition their patient to another setting of careor provider of care or refers their patient to another provider of care shouldprovide summary care record for each transition of care or referral. [facility] Allergies No known active allergies Medications Medication Sig Dispensed Refills Start Date End Date Status lisinopril (ZESTRIL) 5 MG tablet Take 5 mg by mouth daily (every 24 hours). 01/31/2016 Active pramipexole (MIRAPEX) 0.125 MG tablet Take 0.125 mg by mouth 3 times daily. 02/06/2016 Active cholecalciferol (VITAMIN D3) 1000 units tablet Take 1,000 Units by mouth three times a day. Active alendronate (FOSAMAX) 10 MG tablet Take 70 mg by mouth once a week. Active acetaminophen (TYLENOL) 325 MG tablet Take 325-650 mg by mouth every 4 hours as needed for Pain. Active buPROPion (WELLBUTRIN XL) 150 MG 24 hour release tablet Take 150 mg by mouth daily. 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 Overview: LW Modifier: surgery 2004 LW Onset: ; DJD Foot Asymptomatic varicose veins 10/04/2004 Overview: LW Modifier: surgery LW Onset: ; Varicose Veins Resolved Problems Problem Noted Date Diagnosed Date Resolved Date Symptomatic menopausal or fe male climacteric states 10/04/2004 02/17/2006 Overview: LW Onset: ; Menopause Immunizations Name Administration Dates Next Due Td 12/06/1994 Social History Tobacco Use Types Packs/Day Years Used Date Smoking Tobacco: Never Smokeless Tobacco: Never Alcohol Use Standard Drinks/Week Comments No 0 (1 standard drink = 0.6 oz pur e alcohol) Sex and Gender Information Value Date Recorded Sex Assigned at Not on file Gender Identity Not on file Sexual Orientation Not on file Last Filed Vital Signs Vital Sign Reading Time Taken Comments Blood Pressure 180/88 05/09/2021 3:20 PM CDT Pulse 76 05/09/2021 3:20 PM CDT Temperature 36.6 ??C (97.8 ??F) 08/24/2021 1:27 PM CS T Respiratory Rate 18 05/09/2021 3:20 PM CDT Oxygen Saturation 98% 05/09/2021 3:20 PM CDT Inhaled Oxygen Concentration - - Weight 65.8 kg (145 lb) 10/18/2021 9:22 AM CDT Height 144.8 cm (4' 9) 10/18/2021 9:22 AM CDT Body Mass Index 31.38 10/18/2021 9:22 AM CDT Plan of Treatment Upcoming Encounters Date Type Department Care Team (Late st Contact Info) Description 02/12/2024 9:10 AM CDT Appointment [facility] [address] [facility] [place] [phone] Jose Maria Marina MD [address] [facility] [place] [phone] Health Maintenance Due Date Last Done Comments Colonoscopy 10/11/2016 10/12/2011 (Completed) COVID-19 Vaccine ( season) 2023 12/19/2021, 05/27/2021, 09/06/2020, Additional history exists Medicare Annual Wellness Visit 07/08/2023 Dexa 10/04/2023 10/03/2021, 11/17/2019 Influenza (Season Ended) 2024 07/10/2018 DTaP/Tdap/Td (2 - Tdap) 08/21/2028 08/21/19, 12/12/2017, 02/03/2007, Additional history exists Pneumococcal 65+ Yrs Completed 05/10/2016, 01/26/20 10 Zoster/Shingles Completed 06/29/2021, 04/28/2021 HepA Aged Out No longer eligi ble based on patient's age to complete this topic HepB Aged Out No longer eligi ble based on patient's age to complete this topic Hib Aged Out No longer eligi ble based on patient's age to complete this topic IPV (Polio) Aged Out No longer eligi ble based on patient's age to complete this topic MCV4 Aged Out No longer eligi ble based on patient's age to complete this topic Procedures Procedure Name Priority Date/Time Associated Diagnosis Comments DXA BONE DENSITY SPINE/HIP INC VERT FX ASSESS Routine 10/03/2021 3:12 PM CDT Low bone density from Last 3 Months or Most Recently Relevant to Health Maintenance Results * DXA Bone Density Spine/Hip Inc Vert FX Assess (10/03/2021 3:12 PM CDT) Anatomical Region Laterality Modality Spine, Hip Other Narrative 10/04/2021 5:29 PM CDT CLINIC DXA REPORT Patient Name: ??Lashell Moncada Densitometer:HoloStorspeed Discovery A (S/N [id number]) TRIA BONE 5 OSTEOPOROSIS RISK FACTORS FROM PATIENT QUESTIONNAIRE: ?? The patient is a 81 y.o.female: Able to stand easily from a chair without use of the arms: yes. Calcium intake is probably adequate. There is no self-reported personal history of osteoporotic fracture. There is no family history in a first degree relative of hip, pelvis, and/or spine fracture. One self-reported fall(s) over the past 12 months. Osteoporosis documented on a prior bone density test. Current alendronate therapy BONE MINERAL DENSITY: Lumbar spine analysis is excluded due to degenerative sclerosis, surgical hardware, fracture(s), and/or other artifacts Total Hip Bone Mineral Density (gm/cm2): 0.68 (RIGHT) T-Score: -2.1 Z-Score: -0.1 Femoral Neck Bone Mineral Density (gm/cm2): 0.571 T-Score: -2.5 Z-Score: -0.2 FRAX 10 year probability major osteoporotic fracture: 18% 10 year probability hip fracture: 5.8% COMPARISON TO PRIOR STUDY: Date of prior study: 11/17/2019 Lumbar spine change: n/a Total hip change: no significant change outside of densitometer precision error VERTEBRAL FRACTURE ASSESSMENT: No vertebral fractures from T4 through L2 ASSESSMENT: 1. Osteoporosis, based on T-score(s) at the femoral neck 2. Patient is at moderate risk of fracture, based on age, fracture history, bone mineral density at all skeletal sites, and presence or absence of other risk factors. RECOMMENDATIONS: ?? 1. Optimize calcium and vitamin D intake 2. Repeat DXA in 2 years FRAX Explanation: The 10 year risks of hip and major osteoporotic fractures (clinical spine, forearm, hip or shoulder fracture) are calculated by the FRAX algorithm based on femoral neck bone density, age, gender, race/ethnicity, weight, height, previous fracture, parental hip fracture, smoking status, glucocorticoid intake, history of RA, secondary osteoporosis, and high alcohol consumption. FRAX Fracture Risk Categories in terms of major osteoporotic fractures: < 10% = low fracture risk ? 10% and <15% = mildly increased fracture risk ? 15% and <20% = moderately increased fracture risk ? 20% and <30% = high fracture risk ? 30% = very high fracture risk National Osteoporosis Foundation Treatment Guideline A clinician may consider FDA-approved medical therapies in postmenopausal women and men aged 50 years and older, if one or more of the following is present (clinical correlation required and therapy may not always be indicated): 1. The patient has a hip or vertebral fracture. 2. T-score ? -2.5 at the femoral neck, hip, or spine after appropriate evaluation to exclude secondary causes. 3. Low bone mass (T-score between -1.0 and -2.5 at the femoral neck, hip or spine) and a 10-year probability of a hip fracture ? 3% or a 10-year probability of a major osteoporosis-related fracture ? 20% based on the FRAX scores. Rach Francis PA-C RAD DEXA from Last 3 Months or Most Recently Relevant to Health Maintenance Care Teams Lead Electrician Relationship Specialty Start Date End Date Tip Barth, ROLL CONTOUR GRINDER, TORCH BURNER [id number] [place] [phone] PCP - General 10/08/10
--- OUTSIDE RECORDS SUMMARY | 2023-11-11 11:11 | XMS_ITS | Clinical Summary ---
Author Name Unknown Organization [facility] Address [place], [place] [address] Care Team Providers Care Viner Operator Name Role Phone Savanna Feldman PA-C Primary Care Provider [phone] Allergies No known active allergies Medications Medication Sig Dispensed Refills Start Date End Date Status alendronate (FOSAMAX) 70 mg tabletIndications:pos tmenopausal osteoporosis Take 70 mg by mouth once a week in the morning. Take on empty stomach with full glass of water. Do not lie down for 1 hr. Active cholecalciferol (VITAMIN D3) 1,000 unit tabletIndications:pre vention of vitamin D deficiency Take 1,000 units by mouth once daily. Active pramipexole (MIRAPEX) 0.25 mg tabletIndications:res tless leg syndrome Take 0.25 mg by mouth 3 times daily. Active venlafaxine (EFFEXOR XR) 150 mg Extended-Release capsuleIndications:an xiety with depression Take 150 mg by mouth once daily with a meal. Active buPROPion (WELLBUTRIN XL) 150 mg Extended-Release tabletIndications:anx iety with depression Take 300 mg by mouth every morning. Active rosuvastatin (CRESTOR) 5 mg tabletIndications:hyp erlipidemia Take 5 mg by mouth at bedtime. Active lisinopriL (PRINIVIL; ZESTRIL) 20 mg tabletIndications:hyp ertension Take 20 mg by mouth once daily. Hold for SBP < 120 01/12/2022 Active acetaminophen (TYLENOL EXTRA STRGTH) 500 mg tabletIndications:Pos toperative pain after spinal surgery Take 2 Tablets (1,000 mg) by mouth every 6 hours if needed for Pain, Headache or Temp>101.5F (38.6C). Max acetaminophen dose: 4000mg in 24 hrs. 0 02/17/2022 Active apixaban (ELIQUIS) 5 mg tabletIndications:pul monary thromboembolism Take 1 Tablet (5 mg) by mouth 2 times daily. 0 02/17/2022 Active methocarbamoL (ROBAXIN) 750 mg tabletIndications:Pos toperative pain after spinal surgery Take 1 Tablet (750 mg) by mouth every 6 hours if needed for Muscle Spasm. Takes at 0400, 1000, 1600, 2200 20 Tablet 02/17/2022 Active oxyCODONE (ROXICODONE) 5 mg immediate release tabletIndications:Pos toperative pain after spinal surgery Take 1-2 Tablets (5-10 mg) by mouth every 6 hours if needed for Pain (First choice for severe pain.). Takes at 0400, 1000, 1600, 2200 20 Tablet 02/17/2022 Active sennosides-docusate (SENOKOT S) (8.6-50 mg) tabletIndications:Con stipation due to opioid therapy Take 1 Tablet by mouth in the morning and 1 Tablet in the evening. 20 Tablet 02/19/2022 Active melatonin 5 mg capsule Take 1 Capsule (5 mg) by mouth at bedtime if needed. 0 02/19/2022 Active Active Problems Problem Noted Date Diagnosed Date Postoperative pulmonary embolism 02/12/2022 Lumbar back pain 02/10/2022 Status post lumbar spine operation 02/10/2022 Compression fracture of T10 vertebra 02/10/2022 Lumbar stenosis 11/24/2019 Hypertension 11/24/2019 PEPPER (obstructive sleep apnea) 11/24/2019 Depression with anxiety 03/08/2011 Restless legs syndrome (RLS) 03/08/2011 Immunizations Name Administration Dates Next Due Influenza, High-dose Inactivated 07/10/2018 Pneumococcal Poly,23-Valent (Pneumovax) 01/26/20 10 Pneumococcal conj 13-Valent (Prevnar 13) 016 Td (Age >=7 Years) 02/03/2007,12/06/1994 Td, Preservative Free (age >= 7 Years) 8 Tdap 08/21/2018 Zoster (Shingrix-RZV, recombinant) 06/29/2021, Family History Medical History Relation Name Comments Cancer-colon Brother Coronary artery disease Brother Heart attack Brother Asthma Mother Cancer Sister Relation Name Status Comments Brother Mother Sister Social History Tobacco Use Types Packs/Day Years Used Date Smoking Tobacco: Never Smokeless Tobacco: Never Alcohol Use Standard Drinks/Week Comments No 0 (1 standard drink = 0.6 oz pur e alcohol) Social Connections Answer Date Recorded Frequency of Communication with Friends and Fami ly Not on file 02/15/2023 Financial Resource Strain Answer Date R ecorded Difficulty of Paying Living Expenses Not on file 07/08/2021 Difficulty of Paying Living Expenses Not on file 07/08/2021 Sex and Gender Information Value Date Recorded Sex Assigned at Not on file Gender Identity Not on file Sexual Orientation Not on file Obstetrics History Last Filed Vital Signs Vital Sign Reading Time Taken Comments Blood Pressure 133/66 02/15/2023 2:30 PM CDT Pulse 87 02/15/2023 2:30 PM CDT Temperature 36.9 ??C (98.4 ??F) 02/17/2022 8:08 AM CD T Respiratory Rate 14 02/15/2023 2:30 PM CDT Oxygen Saturation 100% 02/17/2022 8:08 AM CDT Inhaled Oxygen Concentration - - Weight 61.7 kg (136 lb) 02/15/2023 2:30 PM CDT Height 149.9 cm (4' 11) 02/09/2022 10:40 PM CDT Body Mass Index 27.47 02/09/2022 10:40 PM CDT Plan of Treatment Health Maintenance Due Date Last Done Comments Depression screening for age 12+ 1952 DEXA/DXA scan for age 65+ 10/01/2007 Medicare Wellness for age 65+ 10/01/2007 BMI (ht and wt on same day) for age 18+ 01/25/2021 01/26/2020, 01/14/2020 COVID-19 vaccine series ( season) 2023 Influenza for age 65+ 03/08/2024 07/10/2018 Tetanus booster 08/21/2028 08/21/2018, 06/0 01/2018, 02/03/2007, Additional history exists Pneumococcal series for age 65+ Completed , 01/25/2010 Tdap Completed 08/21/2018 Zoster (shingles) series for age 50+ Completed 06/29/2021, 04/28/2021 Medical Devices Implanted Type Area Casing Crew Device Identifier Shelf Expiration Date Model / Serial / Lot Bone Matrix 6cc Mikayla Dbf Putty Db - [id number] Implanted:Qty: 1 on 11/24/2019 by Yue Rodrigues MD at [facility] N/A: Lumbar Vertebrae Medtronic Spine/Ortho 08/11/2021 [id number]# / [id number] / Screw Spinal 10.5x90mm Va Cnnltd Tc - [id number] Implanted:Qty: 1 on 11/24/2019 by Jose Maria Marina MD at [facility] N/A: Lumbar Vertebrae Medtronic Spine/Ortho 11/18/2026 [id number]# / / [id number] Screw Spinal 10.5x90mm Va Cnnltd Tc - [id number] Implanted:Qty: 1 on 11/24/2019 by Jose Maria Marina MD at [facility] N/A: Lumbar Vertebrae Medtronic Spine/Ortho 11/18/2026 [id number]# / / [id number] Spacer Lmbr Lg 12mm 8deg Perimeter Alif Peek - [id number] Implanted:Qty: 1 on 11/24/2019 by Jose Maria Marina MD at [facility] N/A: Lumbar Vertebrae Medtronic Spine/Ortho [id number]# / / [id number] Spacer Lmbr Lg 12mm 8deg Perimeter Alif Peek - [id number] Implanted:Qty: 1 on 11/24/2019 by Jose Maria Marina MD at [facility] N/A: Lumbar Vertebrae Medtronic Spine/Ortho [id number]# / / [id number] Screw Spinal 10.5x90mm Va Cnnltd Tc - [id number] Implanted:Qty: 2 on 11/24/2019 by Jose Maria Marina MD at [facility] N/A: Lumbar Vertebrae Medtronic Spine/Ortho [id number]# / / [id number] Screw Lmbr Post 6.5x45mm Solera 5.5/6 Va Cocr - [id number] Implanted:Qty: 6 on 11/24/2019 by Jose Maria Marina MD at [facility] N/A: Lumbar Vertebrae Medtronic Spine/Ortho [id number]# / / Dura Neuro 1x3in Durepair Sut - [id number] Implanted:Qty: 1 on 11/24/2019 by Jose Maria Marina MD at [facility] N/A: Lumbar Vertebrae Medtronic [employer] Technologies 09/04/2020 [id number]# / / [id number] Dura Neuro 5ml Duraseal - [id number] Implanted:Qty: 1 on 11/24/2019 by Jose Maria Marina MD at [facility] N/A: Lumbar Vertebrae Integra [id number] Marivel 06/06/2020# / / [id number] Screw Lmbr Post 7.5x45mm Solera 5.5/6 Va Cocr - [id number] Implanted:Qty: 2 on 11/24/2019 by Jose Maria Marina MD at [facility] N/A: Lumbar Vertebrae Medtronic Spine/Ortho [id number]# / / Bone Matrix 6cc [place] Dbf Putty Dbm - [id number] Implanted:Qty: 1 on 11/24/2019 by Yue Rodrigues MD at [facility] N/A: Lumbar Vertebrae Medtronic Spine/Ortho 08/11/2021 [id number]# / [id number] / Screw Lmbr Post 7.5x40mm Solera 5.5/6 Va Cocr - [id number] Implanted:Qty: 2 on 11/24/2019 by Jose Maria Marina MD at [facility] N/A: Lumbar Vertebrae Medtronic Spine/Ortho [id number]# / / John Lmbr [id number] Legacy 5.5 Cvd Titnm - [id number] Implanted:Qty: 1 on 11/24/2019 by Jose Maria Marina MD at [facility] N/A: Lumbar Vertebrae Medtronic Spine/Ortho 869-021# / / Bone Matrix 6cc [place] Dbf Putty Dbm - [id number] Implanted:Qty: 1 on 11/24/2019 by Yue Rodrigues MD at [facility] N/A: Lumbar Vertebrae Medtronic Spine/Ortho 08/23/2021 [id number]# / [id number] / Bone 1-4mm 30cc Medtronic Chips Canclls Frozen - [id number] Implanted:Qty: 1 on 11/24/2019 by Yue Rodrigues MD at [facility] N/A: Lumbar Vertebrae Medtronic Spine/Ortho 12/20/2023 [id number]# / [id number] / [id number] Bone 1-4mm 60cc Medtronic Chips Canclls Frozen - [id number] Implanted:Qty: 1 on 11/24/2019 by Yue Rodrigues MD at [facility] N/A: Lumbar Vertebrae Medtronic Spine/Ortho 04/08/2024 [id number]# / [id number] / [id number] Spacer Lmbr Lg 14mm 8deg Perimeter Alif Peek - [id number] Implanted:Qty: 1 on 11/24/2019 by Jose Maria Marina MD at [facility] N/A: Lumbar Vertebrae Medtronic Spine/Ortho 11/20/2025 [id number]# / / [id number] Spacer Lmbr Lg 12mm 8deg Perimeter Alif Peek - [id number] Implanted:Qty: 1 on 11/24/2019 by Jose Maria Marina MD at [facility] N/A: Lumbar Vertebrae Medtronic Spine/Ortho 08/26/2027 [id number]# / / [id number] Spacer Lmbr Lg 12mm 8deg Perimeter Alif Peek - [id number] Implanted:Qty: 1 on 11/24/2019 by Jose Maria Marina MD at [facility] N/A: Lumbar Vertebrae Medtronic Spine/Ortho 06/04/2025 [id number]# / / [id number] Description:anterior Bone 1-4mm 30cc Medtronic Chips Canclls Frozen - [id number] Implanted:Qty: 1 on 11/24/2019 by Jose Maria Marina MD at [facility] N/A: Lumbar Vertebrae Medtronic Spine/Ortho 12/19/2023 [id number]# / [id number] / [id number] Set Screw Lmbr Ant 5.5mm Solera Break Off - [id number] Implanted:Qty: 12 on 11/24/2019 by Jose Maria Marina MD at [facility] Explanted:Qty: 4 on 01/09/2022 by Jose Maria Marina MD at [facility] N/A: Lumbar Vertebrae Medtronic Spine/Ortho [id number]# / / Bone 1-4mm 60cc Medtronic Chips Canclls Frozen - [id number] Implanted:Qty: 1 on 01/09/2022 by Jose Maria Marina MD at [facility] Lumbar Vertebrae Medtronic Spine/Ortho 03/16/2026 [id number] / [id number] / [id number] Bone Matrix 6cc Mikayla Dbf Putty Db - [id number] Implanted:Qty: 1 on 01/09/2022 by Jose Maria Mairna MD at [facility] Lumbar Vertebrae Medtronic Spine/Ortho 09/06/2023 [id number] / [id number] / Spacer Spinal [id number] Adaptix - [id number] Implanted:Qty: 1 on 01/09/2022 by Jose Maria Marina MD at [facility] Lumbar Vertebrae Medtronic Spine/Ortho 08/22/2028 [id number] / / [id number] Cnnctr Lmbr 5.5x5.5mm John Connect Variable Titnm Heath - [id number] Implanted:Qty: 3 on 01/09/2022 by Jose Maria Marina MD at [facility] Lumbar Vertebrae Medtronic Spine/Ortho [id number] / / Set Screw Lmbr Std John Connection Titnm - [id number] Implanted:Qty: 6 on 01/09/2022 by Jose Maria Marina MD at [facility] Lumbar Vertebrae Medtronic Spine/Ortho [id number] / / Screw Lmbr Post 5.5x40mm Solera 5.5/6 Va Cocr - [id number] Implanted:Qty: 1 on 01/09/2022 by Jose Maria aMrina MD at [facility] Lumbar Vertebrae Medtronic Spine/Ortho [id number] / / John Lmbr 120x5.5mm Solera 5.5/6 Cvd Co Cr - [id number] Implanted:Qty: 2 on 01/09/2022 by Jose Maria Marina MD at [facility] Lumbar Vertebrae Medtronic Spine/Ortho [id number] / / Set Screw Lmbr Ant 5.5mm Solera Break Off - [id number] Implanted:Qty: 12 on 01/09/2022 by Jose Maria Marina MD at [facility] Explanted:Qty: 2 on 02/12/2022 by Jose Maria Marina MD at [facility] Lumbar Vertebrae Medtronic Spine/Ortho [id number] / / Screw Lmbr Post 6.5x40mm Solera 5.5/6 Va Cocr - [id number] Implanted:Qty: 7 on 01/09/2022 by Jose Maria Marina MD at [facility] Explanted:Qty: 1 on 02/12/2022 by Jose Maria Marina MD at [facility] Lumbar Vertebrae Medtronic Spine/Ortho [id number] / / Bone Matrix 6cc [place] Dbf Putty [facility] - [id number] Implanted:Qty: 1 on 02/12/2022 by Jose Maria Marina MD at [facility] N/A: Spine Medtronic Spine/Ortho 12/29/2023 [id number] / [id number] / Bone 1-4mm 30cc Medtronic Chips Canclls Frozen - [id number] Implanted:Qty: 1 on 02/12/2022 by Jose Maria Marina MD at [facility] N/A: Spine Medtronic Spine/Ortho 07/31/2026 [id number] / [id number] / [id number] Bone Matrix 10cm Mastergraft Strip Dbm - [id number] Implanted:Qty: 1 on 02/12/2022 by Jose Maria Marina MD at [facility] N/A: Spine Medtronic Spine/Ortho 04/06/2024 [id number] / / [id number] [place] Spinal 5.5/6.0mm Cd Horizon Solera Variable Ang - [id number] Implanted:Qty: 1 on 02/12/2022 by Jose Maria Marina MD at [facility] N/A: Spine Medtronic Spine/Ortho 10/31/2026 [id number] / / [id number] Bone Matrix Lg Ii Infuse Bmp - [id number] Implanted:Qty: 1 on 02/12/2022 by Jose Maria Marina MD at [facility] N/A: Spine Medtronic Spine/Ortho 03/07/2023 [id number] / / [id number] Set Screw Lmbr Ant 5.5mm Solera Break Off - [id number] Implanted:Qty: 5 on 02/12/2022 by Jose Maria Marina MD at [facility] N/A: Spine Medtronic Spine/Ortho [id number] / / Cnnctr Lmbr 5.5x5.5mm John Connect Variable Titnm [place] - [id number] Implanted:Qty: 4 on 02/12/2022 by Jose Maria Marina MD at [facility] N/A: Spine Medtronic Spine/Ortho [id number] / / Set Screw Lmbr Std John Connection Titnm - [id number] Implanted:Qty: 2 on 02/12/2022 by Jose Maria Marina MD at [facility] N/A: Spine Medtronic Spine/Ortho [id number] / / John Lmbr 70x5.5mm Solera 5.5/6 Cvd Titnm - [id number] Implanted:Qty: 2 on 02/12/2022 by Jose Maria Marina MD at [facility] N/A: Spine Medtronic Spine/Ortho [id number] / / Screw Lmbr Post 6.5x40mm Solera 5.5/6 Va Cocr - [id number] Implanted:Qty: 4 on 02/12/2022 by Jose Maria Marina MD at [facility] N/A: Spine Medtronic Spine/Ortho [id number] / / Advance Directives * Full Code (Latest Code Status on File) Date Activated Date Inactivated Comments 02/12/2022 10:03 AM 02/17/2022 5:15 PM Question Answer Comments Code Status Discussion: Reviewed Preferences * Full Code Date Activated Date Inactivated Comments 02/10/2022 2:10 AM 02/12/2022 10:03 AM Question Answer Comments Code Status Discussion: Reviewed Preferences * Full Code Date Activated Date Inactivated Comments 01/09/2022 7:17 AM 01/12/2022 1:30 PM Question Answer Comments Code Status Discussion: Reviewed Preferences * Full Code Date Activated Date Inactivated Comments 11/24/2019 9:49 AM 11/29/2019 5:05 PM Care Teams Viner Operator Relationship Specialty Start Date End Date Savanna Feldman PA-C [address] [place] [address] PCP - General Emergency Medicine 01/27/22
--- OUTSIDE RECORDS SUMMARY | 2023-11-11 11:11 | XMS_ITS | Clinical Summary ---
Author Name Unknown Organization [facility] Address [address] [facility] [place] [address] Care Team Providers Care Video Game Engineer Name Role Phone [facility]- Primary Care Provider Allergies No known active allergies Medications Medication Sig Dispensed Refills Start Date End Date Status venlafaxine (EFFEXOR-XR) 150 MG 24 hr capsule Take 150 mg by mouth every 24 hours 01/31/2016 Active aspirin (ASA) 81 MG tablet Take 1 tablet by mouth every 24 hours 12/19/2010 Active buPROPion (WELLBUTRIN XL) 150 MG 24 hr tablet Take 150 mg by mouth every morning Active Vitamin D, Cholecalciferol, 25 MCG (1000 UT) TABS Take 1 tablet by mouth daily as needed Active lisinopril (PRINIVIL/ZESTRIL) 20 MG tablet Take 20 mg by mouth daily Takes at noon Active pramipexole (MIRAPEX) 0.25 MG tablet Take 0.25 mg by mouth 3 times daily Active Active Problems Problem Noted Date Diagnosed Date Bright red blood per rectum 07/27/2019 Social History Tobacco Use Types Packs/Day Years Used Date Smoking Tobacco: Never Smokeless Tobacco: Never Adolescent Education Answer Date Record ed Getting School Help Needed Not on file 04/14 Sex and Gender Information Value Date Recorded Sex Assigned at Not on file Gender Identity Not on file Sexual Orientation Not on file Last Filed Vital Signs Vital Sign Reading Time Taken Comments Blood Pressure 186/88 07/28/2019 8:35 AM ENGINEERING TECHNICAL ANALYST Pulse 77 07/27/2019 7:18 PM ENGINEERING TECHNICAL ANALYST Temperature 35.3 ??C (95.6 ??F) 07/28/2019 8:00 AM CS T Respiratory Rate 18 07/28/2019 8:00 AM ENGINEERING TECHNICAL ANALYST Oxygen Saturation 94% 07/28/2019 8:00 AM ENGINEERING TECHNICAL ANALYST Inhaled Oxygen Concentration - - Weight 65.8 kg (145 lb) 07/27/2019 3:02 AM ENGINEERING TECHNICAL ANALYST Height 151.1 cm (4' 11.5) 07/27/2019 3:02 AM CS T Body Mass Index 28.8 07/27/2019 3:02 AM ENGINEERING TECHNICAL ANALYST Plan of Treatment Health Maintenance Due Date Last Done Comments ADVANCE CARE PLANNING 1940 ANNUAL REVIEW OF HM ORDERS 1940 RSV VACCINE ( & 60+) (1 - 1-dose 60+ series) 2002 FALL RISK ASSESSMENT 10/01/2007 MEDICARE ANNUAL WELLNESS VISIT 10/01/2007 COVID-19 Vaccine ( season) 2023 12/19/2021, 05/27/2021, 09/06/2020, Additional history exists PHQ-2 (once per calendar year) 2023 INFLUENZA VACCINE (Season Ended) 2024 07/10/2018 DTAP/TDAP/TD IMMUNIZATION (2 - Td or Tdap) 08/21/2028 08/21/2018, 12/12/2017, 02/03/2007, Additional history exists DEXA 10/03/2036 10/03/2021, 11/17/2019 Pneumococcal Vaccine: 65+ Years Completed 05/10/2016, 01/25/2010 COLORECTAL CANCER SCREENING Discontinued FIT Discontinued 07/27/2019 ZOSTER IMMUNIZATION Completed 06/29/[address], [address] COLONOGRAPHY Discontinued FLEX SIG Discontinued HPV IMMUNIZATION Aged Out No longer e ligible based on patient's age to complete this topic IPV IMMUNIZATION Aged Out No longer e ligible based on patient's age to complete this topic MENINGITIS IMMUNIZATION Aged Out No l onger eligible based on patient's age to complete this topic RSV MONOCLONAL ANTIBODY Aged Out No l onger eligible based on patient's age to complete this topic sDNA (Cologuard) Discontinued Procedures Procedure Name Priority Date/Time Associated Diagnosis Comments DX VERTEBRAL FRACTURE ANALYSIS Routine 10/03/2021 3:12 PM CDT OCCULT BLOOD STOOL STAT 07/27/2019 3: 34 AM ENGINEERING TECHNICAL ANALYST from Last 3 Months or Most Recently Relevant to Health Maintenance Results * (ABNORMAL) Stool: occult blood (07/27/2019 3:34 AM ENGINEERING TECHNICAL ANALYST) Occult Blood Positive(A ) NEG^Negati ve 07/27/2019 3:52 AM ENGINEERING TECHNICAL ANALYST [facility] Stool specimen (specimen) 07/27/2019 3:34 AM ENGINEERING TECHNICAL ANALYST 07/27/2019 3:46 AM ENGINEERING TECHNICAL ANALYST Danie Abrams MD LAB - STOOLS ORDERAB LES [facility] [address] [place] [address], [facility] [phone] from Last 3 Months or Most Recently Relevant to Health Maintenance Advance Directives For more information, please contact: [phone] * Full Code (Latest Code Status on File) Date Activated Date Inactivated Comments 07/28/2019 10:30 AM Question Answer Comments Code status determined by: Discussion with frank nt/legal decision maker * Full Code Date Activated Date Inactivated Comments 07/27/2019 6:30 AM 07/28/2019 10:30 AM Question Answer Comments Code status determined by: Discussion with patie nt/legal decision maker Care Teams Video Game Engineer Relationship Specialty Start Date End Date [facility]- [address] [place] [address] PCP - General 07/27/19
--- OUTSIDE RECORDS SUMMARY | 2023-11-11 11:11 | XMS_ITS | Continuity of Care Document ---
Author Name Unknown Organization [facility] Address [address] [place] [address] Phone Care Team Providers Care Sales Executive Name Role Phone Kasia Alex Unavailable Unavail able Medications Medication Instructions Dosage Effective Dates (start - stop) Status Comments Do Not Prescribe tri pt: meds, calls , appts etc are all to be done at tri - Active Procedures Procedure Date PSF, Thoracic - UT PSF - Additional Level(s) - UT Laminectomy, Thoracic 1-2 Segments (Sten osis) - UT Posterior Instrumentation, 3-6 Segments - PA PSF, Thoracic PSF - Additional Level(s) Laminectomy, Thoracic 1-2 Segments (Sten osis) Posterior Instrumentation, 3-6 Segments Allograft, Morcelized, and/or BMP Autograft, From Same Incision TLIF - Includes PSF at the same level - PA HARRIS FACETC/FRMT ARTHRD LUM 1 PSF - Additional Level(s) - UT Posterior Instrumentation, 3-6 Segments - PA PEEK/ [...] [address], [place], [id number], [place] tel:[phone] [facility] No Information Saw Pedroza. [facility], [address], [address], [place], [place], [id number], [place]. tel:[phone] Referring Provider: Jose Maria Marina, [facility] [address], [place], [address]. tel:[phone] [facility], [address], [place], [id number], [place] tel:[phone] [facility] No Information Laina Moise. [facility], [address], [place], [place], [id number], [place]. tel:[phone] Referring Provider: Jose Maria Marina, [facility] [address], [place], [address]. tel:[phone] [facility], [address], [place], [id number], [place] tel:[phone] [facility] No Information Saw Pedroza. [facility], [address], [address], [place], [place], [address], [place]. tel:[phone] Referring Provider: Jose Maria Marina, [facility] [address], [place], [address]. tel:[phone] [facility], [address], [place], [id number], [place] tel:[phone] [facility] No Information Laina Moise. [facility], [address], [place], [place], [id number], [place]. tel:[phone] Referring Provider: Jose Maria Marina, [facility] [address], [place], [address]. tel:[phone] [facility], [address], [place], [id number], [place] tel:[phone] [facility] No Information Jonny Ledesma. [facility], [address], [place], [place], [address], [place]. tel:[phone] Referring Provider: Jose Maria Marina, [facility] [address], [place], [address]. tel:[phone] [facility], [address], [place], [id number], [place] tel:[phone] [facility] No Information Laina Moise. [facility], [address], [place], [place], [address], [place]. tel:[phone] Referring Provider: Jose Maria Marina, [facility] [address], [place], [address]. tel:[phone] [facility], [address], [place], [place], [id number], tel:[phone] [facility] No Information Laina Moise. [facility], [address], [place], [place], [id number], [place]. tel:[phone] Family History Family Member Type Diagnosis Age At Onset No Information Payers Payer name Insurance type Covered republican ID Authoriza ticristofer(s) Hum[employer] Medicare Gold Choice Beatriz TAVERAS [id number] Social History Type Description Quantity Date [...]
--- OUTSIDE RECORDS SUMMARY | 2023-11-11 11:11 | XMS_ITS | Referral Summary ---
Author Name Unknown Organization [facility] Address [address] [facility] [place] [address] Care Team Providers Care Trolley Wire Installer Name Role Phone [facility]- Primary Care Provider Allergies No known active [...] Comments Blood Pressure 186/88 07/28/2019 8:35 AM PLUMBING DESIGNER Pulse 77 07/27/2019 7:18 PM PLUMBING DESIGNER Temperature 35.3 ??C (95.6 ??F) 07/28/2019 8:00 AM CS T Respiratory Rate 18 07/28/2019 8:00 AM PLUMBING DESIGNER Oxygen Saturation 94% 07/28/2019 8:00 AM PLUMBING DESIGNER Inhaled Oxygen Concentration - - Weight 65.8 kg (145 lb) 07/27/2019 3:02 AM PLUMBING DESIGNER Height 151.1 cm (4' 11.5) 07/27/2019 3:02 AM CS T Body Mass Index 28.8 07/27/2019 3:02 AM PLUMBING DESIGNER Plan of Treatment Not on file Procedures Procedure Name Priority Date/Time Associated Diagnosis Comments DX VERTEBRAL FRACTURE ANALYSIS Routine 10/03/2021 3:12 PM CDT OCCULT BLOOD STOOL STAT 07/27/2019 3: 34 AM PLUMBING DESIGNER from Last 3 Months or Most Recently Relevant to Health Maintenance Results * (ABNORMAL) Stool: occult blood (07/27/2019 3:34 AM PLUMBING DESIGNER) Occult Blood Positive(A ) NEG^Negati ve 07/27/2019 3:52 AM PLUMBING DESIGNER [facility] Stool specimen (specimen) 07/27/2019 3:34 AM PLUMBING DESIGNER 07/27/2019 3:46 AM PLUMBING DESIGNER Danie Abrams MD LAB - STOOLS ORDERAB LES [facility] [address] [place] [address], [facility] [phone] from Last 3 Months or Most Recently Relevant to Health Maintenance Advance Directives For more information, please contact: [phone] * Full Code (Latest Code Status on File) Date Activated Date Inactivated Comments 07/28/2019 10:30 AM Question Answer Comments Code status determined by: Discussion with frank nt/legal decision maker * Full Code Date Activated Date Inactivated Comments 07/27/2019 6:30 AM 07/28/2019 10:30 AM Question Answer Comments Code status determined by: Discussion with frank nt/legal decision maker Care Teams Trolley Wire Installer Relationship Specialty Start Date End Date [facility]- [address] [address] PCP - General 07/27/19
== END 2023-11-11 11:08 | disposition home or self-care (01) ==
PROVIDERS: PCP Physician Assistant Medical; Visit Provider Physician Assistant Medical
DX: G62.9 Polyneuropathy, unspecified (principal); Z13.228 Encounter for screening for other metabolic disorders; Z13.220 Encounter for screening for lipoid disorders; Z13.21 Encounter for screening for nutritional disorder; Z13.29 Encounter for screening for other suspected endocrine disorder
CPT/HCPCS: 80053; 80061; 82607; 84443

== ENCOUNTER 2023-12-05 13:58 | Outpatient (CLI) | payer OTHER, SELFPAY ==
--- NOTE | 2023-12-05 14:00 | CRLHL7_ITS ---
For Patients: As a result of the Century Cures Act, medical imaging exams and procedure reports are released immediately into your electronic medical record. You may view this report before your referring provider. If you have questions, please contact your health care provider. DXA BONE MINERAL DENSITY STUDY Current height (in): 58.0. Weight (lb): 140.0. Menopause age: 40. Ethnicity: White. Reason for exam: Screening. 1. Have you had a previous hip or vertebral fracture? No. 2. Have you had any fractures during your adult life which did not result from significant trauma (e.g., auto accident)? No. 3. Did either of your parents have a hip fracture? No. 4. Do you smoke? No. 5. Have you ever taken Glucocorticoids? No. 6. Do you have rheumatoid arthritis? No. 7. Do you have secondary osteoporosis? No. 8. Do you drink 3 or more alcoholic drinks per day? No. 9. Are you being treated for osteoporosis? No. 10. Have you ever taken any of the following medications: Actonel, Evista, Fosamax, Miacalcin, Reclast, Boniva, Forteo, HRT (i.e. estrogen/hormone therapy), Protelos, Prolia, Vitamin D, Calcium, other ??? please specify. ANSWER: No. 11. Do you have any of the following medical conditions: Anorexia or bulimia, asthma or emphysema, end stage renal disease, hyperparathyroidism, any seizure disorders, cancer, inflammatory bowel diseases, hysterectomy, other ??? please specify. ANSWER: Yes, hysterectomy. 12. What was your maximum height (inches)? 60. 13. Do you perform weight bearing exercise regularly? No. 14. Do you regularly consume dairy products? No. 15. Do you drink caffeinated beverages? Yes. 16. At what age did your period start? 15. 17. Are you premenopausal? No. 18. How many full term pregnancies have you had? 3. 19. Have you ever missed your period for more than 6 months in a row (not including or menopause)? No. TECHNIQUE: Bone mineral density study was performed using the [employer]. FINDINGS: The results of the study expressed as bone mineral density (BMD) are as follows: Neck Left: BMD: 0.572 g/cm2. T-score: -2.5. Z-score: -0.1 Right: BMD: 0.638 g/cm2. T-score: -1.9. Z-score: 0.4 Total Left: BMD: 0.755 g/cm2. T-score: -1.5. Z-score: 0.6 Right: BMD: 0.698 g/cm2. T-score: -2.0. Z-score: 0.1 Radius Left 33%: BMD: 0.561 g/cm2. T-score: -2.2. Z-score: 1.0 IMPRESSION: Osteoporosis. *Comparison exams done prior to 12/2019 were performed on different unit, [employer]. COMPARISON: Compared with scan of 09/22/2020, decreased by 0.5 percent at the hip. Shaquille Del Toro M.D. Diagnostic Radiologist [email or web address] Transcribed: 10:56 am DW/Dictated by: Shaquille Del Toro MD @ 12/09/2023 9:45:00 AM (Electronically Signed)
--- OUTSIDE RECORDS SUMMARY | 2023-12-05 14:01 | XMS_ITS | Continuity of Care Document ---
Author Organization [facility] Address [address] [place] [address] Phone Care Team Providers Care Sensor Operator Name Role Phone Kasia Alex Unavailable Unavail able Medications Medication Instructions Dosage Effective Dates (start - stop) Status Comments Do Not Prescribe [facility] pt: meds, calls , appts etc are all to be done at [facility] - Active Procedures Procedure Date PSF, Thoracic - KS PSF - Additional Level(s) - KS Laminectomy, Thoracic 1-2 Segments (Sten osis) - KS Posterior Instrumentation, 3-6 Segments - PA PSF, Thoracic PSF - Additional Level(s) Laminectomy, Thoracic 1-2 Segments (Sten osis) Posterior Instrumentation, 3-6 Segments Allograft, Morcelized, and/or BMP Autograft, From Same Incision TLIF - Includes PSF at the same level - KS HARRIS FACETC/FRMT ARTHRD LUM 1 PSF - Additional Level(s) - KS Posterior Instrumentation, 3-6 Segments - PA PEEK/ [...] [address], [place], [id number], [place] tel:[phone] [facility] No Information Saw Pedroza. [facility], [address] [place] [address], [address], [place], [place], [id number], [place]. tel:[phone] Referring Provider: Jose Maria Marina, [facility] [address] [place] [address] [address], [place], [address]. tel:[phone] [facility], [address], [place], [id number], [place] tel:[phone] [facility] No Information Laina Moise. [facility], [address], [place], [place], [id number], [place]. tel:[phone] Referring Provider: Jose Maria Marina, [facility] [address], [place], [address]. tel:[phone] [facility], [address], [place], [id number], [place] tel:[phone] [facility] No Information Saw Pedroza. [facility], [address], [address], [place], [place], [address], [place]. tel:[phone] Referring Provider: Jose Maria Marina, [facility] [address], [place], [address]. tel:[phone] [facility], [address], [place], [id number], [place] tel:[phone] [facility] No Information Laina Moise. [facility], [address], [place], [place], [id number], [place]. tel:[phone] Referring Provider: Jose Maria Marina, [facility] [address], [place], [address]. tel:[phone] [facility], [address], [place], [id number], [place] tel:[phone] [facility] No Information Jonny Ledesma. [facility], [address], [place], [place], [address], [place]. tel:[phone] Referring Provider: Jose Maria Marina, [facility] [address], [place], [address]. tel:[phone] [facility], [address], [place], [id number], [place] tel:[phone] [facility] No Information Laina Moise. [facility], [address], [place], [place], [id number], [place]. tel:[phone] Referring Provider: Jose Maria Marina, [facility] [address], [place], [address]. tel:[phone] [facility], [address], [place], [place], [id number], tel:[phone] [facility] No Information Laina Moise. [facility], [address], [place], [place], [address], [place]. tel:[phone] Family History Family Member Type Diagnosis Age At Onset No Information Payers Payer name Insurance type Covered green party ID Authoriza ticristofer(s) Hum[employer] Medicare Gold Choice Beatriz TAVERAS [id number] Social History Type Description Quantity Date [...]
--- OUTSIDE RECORDS SUMMARY | 2023-12-05 14:01 | XMS_ITS | Clinical Summary ---
Author Organization [facility] Address [address] [facility] [place] [address] Care Team Providers Care Casting Cleaner Name Role Phone [facility]- Primary Care Provider Allergies No known [...] Comments Blood Pressure 186/88 07/28/2019 8:35 AM FLOOR WORKER Pulse 77 07/27/2019 7:18 PM FLOOR WORKER Temperature 35.3 ??C (95.6 ??F) 07/28/2019 8:00 AM CS T Respiratory Rate 18 07/28/2019 8:00 AM FLOOR WORKER Oxygen Saturation 94% 07/28/2019 8:00 AM FLOOR WORKER Inhaled Oxygen Concentration - - Weight 65.8 kg (145 lb) 07/27/2019 3:02 AM FLOOR WORKER Height 151.1 cm (4' 11.5) 07/27/2019 3:02 AM CS T Body Mass Index 28.8 07/27/2019 3:02 AM FLOOR WORKER Plan of Treatment Health Maintenance Due Date [...] BLOOD STOOL STAT 07/27/2019 3: 34 AM FLOOR WORKER from Last 3 Months or Most Recently Relevant to Health Maintenance Results * (ABNORMAL) Stool: occult blood (07/27/2019 3:34 AM FLOOR WORKER) Occult Blood Positive(A ) NEG^Negati ve 07/27/2019 3:[address] [facility] Stool specimen (specimen) 07/27/2019 3:34 AM FLOOR WORKER 07/27/2019 3:46 AM FLOOR WORKER Danie Abrams MD LAB - STOOLS ORDERAB LES [facility] [address] [place] [address], [facility] [phone] from Last 3 Months or Most Recently Relevant to Health Maintenance Advance Directives For more information, please contact: [phone] * Full Code (Latest Code Status on File) Date Activated Date Inactivated Comments 07/28/2019 10:30 AM Question Answer Comments Code status determined by: Discussion with patie nt/legal decision maker * Full Code Date Activated Date Inactivated Comments 07/27/2019 6:30 AM 07/28/2019 10:30 AM Question Answer Comments Code status determined by: Discussion with patie nt/legal decision maker Care Teams Casting Cleaner Relationship Specialty Start Date End Date [facility]- [address] [place] [address] PCP - General 07/27/19
--- OUTSIDE RECORDS SUMMARY | 2023-12-05 14:01 | XMS_ITS | Referral Summary ---
Author Organization [place] Address [address] [facility] [place] [address] Care Team Providers Care Thread Trimmer Name Role Phone [facility]- Primary Care Provider Allergies No [...] Comments Blood Pressure 186/88 07/28/2019 8:35 AM BAR HOST/HOSTESS Pulse 77 07/27/2019 7:18 PM BAR HOST/HOSTESS Temperature 35.3 ??C (95.6 ??F) 07/28/2019 8:00 AM CS T Respiratory Rate 18 07/28/2019 8:00 AM BAR HOST/HOSTESS Oxygen Saturation 94% 07/28/2019 8:00 AM BAR HOST/HOSTESS Inhaled Oxygen Concentration - - Weight 65.8 kg (145 lb) 07/27/2019 3:02 AM BAR HOST/HOSTESS Height 151.1 cm (4' 11.5) 07/27/2019 3:02 AM CS T Body Mass Index 28.8 07/27/2019 3:02 AM BAR HOST/HOSTESS Plan of Treatment Not on file Procedures Procedure Name Priority Date/Time Associated Diagnosis Comments DX VERTEBRAL FRACTURE ANALYSIS Routine 10/03/2021 3:12 PM CDT OCCULT BLOOD STOOL STAT 07/27/2019 3: 34 AM BAR HOST/HOSTESS from Last 3 Months or Most Recently Relevant to Health Maintenance Results * (ABNORMAL) Stool: occult blood (07/27/2019 3:34 AM BAR HOST/HOSTESS) Occult Blood Positive(A ) NEG^Negati ve 07/27/2019 3:52 AM BAR HOST/HOSTESS [facility] Stool specimen (specimen) 07/27/2019 3:34 AM BAR HOST/HOSTESS 07/27/2019 3:46 AM BAR HOST/HOSTESS Danie Abrams MD LAB - STOOLS ORDERAB LES [facility] [address] [place] [address], [facility] [phone] from Last 3 Months or Most Recently Relevant to Health Maintenance Advance Directives For more information, please contact: [phone] * Full Code (Latest Code Status on File) Date Activated Date Inactivated Comments 07/28/2019 10:30 AM Question Answer Comments Code status determined by: Discussion with frank nt/legal decision maker * Full Code Date Activated Date Inactivated Comments 07/27/2019 6:30 AM 07/28/2019 10:30 AM Question Answer Comments Code status determined by: Discussion with frank nt/legal decision maker Care Teams Thread Trimmer Relationship Specialty Start Date End Date [facility]- [address] [place] [address] PCP - General 07/27/19
--- OUTSIDE RECORDS SUMMARY | 2023-12-05 14:01 | XMS_ITS | Clinical Summary ---
Author Organization [employer] [facility] Address [place], [place] [address] Care Team Providers Care Solar Consultant Name Role Phone Savanna Feldman PA-C Primary Care Provider [phone] Allergies No known active allergies Medications Medication [...] 06/29/2021, 04/28/2021 Medical Devices Implanted Type Area Department Director Device Identifier Shelf Expiration Date Model / Serial / Lot Bone Matrix 6cc Glades Dbf Putty Db - [id number] Implanted:Qty: 1 on 11/24/2019 by Yue Rodrigues MD at [facility] N/A: Lumbar Vertebrae Medtronic Spine/Ortho 08/11/2021 [id number]# / [id number] / Screw Spinal 10.5x90mm Va Cnnltd Tc - [id number] Implanted:Qty: 1 on 11/24/2019 by Jose Maria Marina MD at [facility] N/A: Lumbar Vertebrae Medtronic Spine/Ortho 11/18/2026 [id number]# / / [id number] Screw Spinal 10.5x90mm Va Cnnltd Tc - [id number] Implanted:Qty: 1 on 11/24/2019 by Jose Maria Marina MD at [facility] N/A: Lumbar Vertebrae Medtronic Spine/Ortho 11/18/2026 [id number]# / / [id number] Spacer Lmbr Lg 12mm 8deg Perimeter Alif Peek - [id number] Implanted:Qty: 1 on 11/24/2019 by Jose Maria Marina MD at [facility] N/A: Lumbar Vertebrae Medtronic Spine/Ortho [id number]# / / [id number] Spacer Lmbr Lg 12mm 8deg Perimeter Alif Peek - [id number] Implanted:Qty: 1 on 11/24/2019 by Jose Maria Marina MD at [facility] N/A: Lumbar Vertebrae Medtronic Spine/Ortho [id number]# / / [id number] Screw Spinal 10.5x90mm Va Cnnltd Tc - [id number] Implanted:Qty: 2 on 11/24/2019 by Jose Maria Marina MD at [facility] N/A: Lumbar Vertebrae Medtronic Spine/Ortho [id number]# / / [id number] Screw Lmbr Post 6.5x45mm Solera 5.5/6 Va Cocr - [id number] Implanted:Qty: 6 on 11/24/2019 by Jose Maria Mraina MD at [facility] N/A: Lumbar Vertebrae Medtronic Spine/Ortho [id number]# / / Dura Neuro 1x3in Durepair Sut - [id number] Implanted:Qty: 1 on 11/24/2019 by Jose Maria Marina MD at [facility] N/A: Lumbar Vertebrae Medtronic Surgery Technologies 09/04/2020 [id number]# / / [id number] Dura Neuro 5ml Duraseal - [id number] Implanted:Qty: 1 on 11/24/2019 by Jose Maria Marina MD at [facility] N/A: Lumbar Vertebrae Integra Stumpediacicode-laboration Marivel 06/06/2020# / / [id number] Screw Lmbr Post 7.5x45mm Solera 5.5/6 Va Cocr - [id number] Implanted:Qty: 2 on 11/24/2019 by Jose Maria Marina MD at [facility] N/A: Lumbar Vertebrae Medtronic Spine/Ortho [id number]# / / Bone Matrix 6cc Mikayla Dbf Putty Dbm - [id number] Implanted:Qty: 1 on 11/24/2019 by Yue Rodrigues MD at [facility] N/A: Lumbar Vertebrae Medtronic Spine/Ortho 08/11/2021 [id number]# / [id number] / Screw Lmbr Post 7.5x40mm Solera 5.5/6 Va Cocr - [id number] Implanted:Qty: 2 on 11/24/2019 by Jose Maria Marina MD at [facility] N/A: Lumbar Vertebrae Medtronic Spine/Ortho [id number]# / / John Lmbr [id number] Legacy 5.5 Cvd Titnm - [id number] Implanted:Qty: 1 on 11/24/2019 by Jose Maria Marina MD at [facility] N/A: Lumbar Vertebrae Medtronic Spine/Ortho 869-021# / / Bone Matrix 6cc Glades Dbf Putty Dbm - [id number] Implanted:Qty: 1 on 11/24/2019 by Yue Rodrigues MD at [facility] N/A: Lumbar Vertebrae Medtronic Spine/Ortho 08/23/2021 [id number]# / [id number] / Bone 1-4mm 30cc Medtronic Chips Canclls Frozen - [id number] Implanted:Qty: 1 on 11/24/2019 by Yue Rodrigues MD at [facility] N/A: Lumbar Vertebrae Medtronic Spine/Ortho 12/20/2023 [id number]# / [id number] / [id number] Bone 1-4mm 60cc Medtronic Chips Canclls Frozen - [id number] Implanted:Qty: 1 on 11/24/2019 by Yue Rodrigues MD at [facility] N/A: Lumbar Vertebrae Medtronic Spine/Ortho 04/08/2024 [id number]# / [id number] / [id number] Spacer Lmbr Lg 14mm 8deg Perimeter Alif Peek - [id number] Implanted:Qty: 1 on 11/24/2019 by Jose Maria Marina MD at [facility] N/A: Lumbar Vertebrae Medtronic Spine/Ortho 11/20/2025 [id number]# / / [id number] Spacer Lmbr Lg 12mm 8deg Perimeter Alif Peek - [id number] Implanted:Qty: 1 on 11/24/2019 by Jose Maria Marina MD at [facility] N/A: Lumbar Vertebrae Medtronic Spine/Ortho 08/26/2027 [id number]# / / [id number] Spacer Lmbr Lg 12mm 8deg Perimeter Alif Peek - [id number] Implanted:Qty: 1 on 11/24/2019 by Jose Maria Marina MD at [facility] N/A: Lumbar Vertebrae Medtronic Spine/Ortho 06/04/2025 [id number]# / / [id number] Description:anterior Bone 1-4mm 30cc Medtronic Chips Canclls Frozen - [id number] Implanted:Qty: 1 on 11/24/2019 by Jose Maria Marina MD at [facility] N/A: Lumbar Vertebrae Medtronic Spine/Ortho 12/19/2023 [id number]# / [id number] / [id number] Set Screw Lmbr Ant 5.5mm Solera Break Off - [id number] Implanted:Qty: 12 on 11/24/2019 by Jose Maria Marina MD at [facility] Explanted:Qty: 4 on 01/09/2022 by Jose Maria Marina MD at [facility] N/A: Lumbar Vertebrae Medtronic Spine/Ortho [id number]# / / Bone 1-4mm 60cc Medtronic Chips Canclls Frozen - [id number] Implanted:Qty: 1 on 01/09/2022 by Jose Maria Marina MD at [facility] Lumbar Vertebrae Medtronic Spine/Ortho 03/16/2026 [id number] / [id number] / [id number] Bone Matrix 6cc Glades Dbf Putty Dbm - [id number] Implanted:Qty: 1 on 01/09/2022 by Jose Maria Marina MD at [facility] Lumbar Vertebrae Medtronic Spine/Ortho 09/06/2023 [id number] / [id number] / Spacer Spinal [id number] Adaptix - [id number] Implanted:Qty: 1 on 01/09/2022 by Jose Maria Marina MD at [facility] Lumbar Vertebrae Medtronic Spine/Ortho 08/22/2028 [id number] / / [id number] Cnnctr Lmbr 5.5x5.5mm John Connect Variable Titnm Heath - [id number] Implanted:Qty: 3 on 01/09/2022 by Jose Maria Marina MD at [facility] Lumbar Vertebrae Medtronic Spine/Ortho [id number] / / Set Screw Lmbr Std John Connection Titnm - [id number] Implanted:Qty: 6 on 01/09/2022 by Jose Maria Marina MD at [facility] Lumbar Vertebrae Medtronic Spine/Ortho [id number] / / Screw Lmbr Post 5.5x40mm Solera 5.5/6 Va Cocr - [id number] Implanted:Qty: 1 on 01/09/2022 by Jose Maria Marina MD at [facility] Lumbar Vertebrae Medtronic Spine/Ortho [id number] / / John Lmbr 120x5.5mm Solera 5.5/6 Cvd Co Cr - [id number] Implanted:Qty: 2 on 01/09/2022 by Jose Maria Marina MD at [facility] Lumbar Vertebrae Medtronic Spine/Ortho [id number] / / Set Screw Lmbr Ant 5.5mm Solera Break Off - [id number] Implanted:Qty: 12 on 01/09/2022 by Jose Maria Marina MD at [facility] Explanted:Qty: 2 on 02/12/2022 by Jose Maria Marina MD at [facility] Lumbar Vertebrae Medtronic Spine/Ortho [id number] / / Screw Lmbr Post 6.5x40mm Solera 5.5/6 Va Cocr - [id number] Implanted:Qty: 7 on 01/09/2022 by Jose Maria Marina MD at [facility] Explanted:Qty: 1 on 02/12/2022 by Jose Maria Marina MD at [facility] Lumbar Vertebrae Medtronic Spine/Ortho [id number] / / Bone Matrix 6cc Mikayla Dbf Putty [facility] - [id number] Implanted:Qty: 1 on 02/12/2022 by Jose Maria Marina MD at [facility] N/A: Spine Medtronic Spine/Ortho 12/29/2023 [id number] / [id number] / Bone 1-4mm 30cc Medtronic Chips Canclls Frozen - [id number] Implanted:Qty: 1 on 02/12/2022 by Jose Maria Marina MD at [facility] N/A: Spine Medtronic Spine/Ortho 07/31/2026 [id number] / [id number] / [id number] Bone Matrix 10cm Mastergraft Strip Db - [id number] Implanted:Qty: 1 on 02/12/2022 by Jose Maria Marina MD at [facility] N/A: Spine Medtronic Spine/Ortho 04/06/2024 [id number] / / [id number] Heath Spinal 5.5/6.0mm Cd Horizon Solera Variable Ang - [id number] Implanted:Qty: 1 on 02/12/2022 by Jose Maria Marina MD at [facility] N/A: Spine Medtronic Spine/Ortho 10/31/2026 [id number] / / [id number] Bone Matrix Lg Ii Infuse Bmp - [id number] Implanted:Qty: 1 on 02/12/2022 by Jose Maria Marina MD at [facility] N/A: Spine Medtronic Spine/Ortho 03/07/2023 [id number] / / [id number] Set Screw Lmbr Ant 5.5mm Solera Break Off - [id number] Implanted:Qty: 5 on 02/12/2022 by Jose Maria Marina MD at [facility] N/A: Spine Medtronic Spine/Ortho [id number] / / Cnnctr Lmbr 5.5x5.5mm John Connect Variable Titnm Heath - [id number] Implanted:Qty: 4 on 02/12/2022 by Jose Maria Marina MD at [facility] N/A: Spine Medtronic Spine/Ortho [id number] / / Set Screw Lmbr Std John Connection Titnm - [id number] Implanted:Qty: 2 on 02/12/2022 by Jose Maria Marina MD at [facility] N/A: Spine Medtronic Spine/Ortho [id number] / / John Lmbr 70x5.5mm Solera 5.5/6 Cvd Titnm - [id number] Implanted:Qty: 2 on 02/12/2022 by Jose Maria Marina MD at [facility] N/A: Spine Medtronic Spine/Ortho [id number] / / Screw Lmbr Post 6.5x40mm Solera 5.5/6 Va Cocr - [id number] Implanted:Qty: 4 on 02/12/2022 by Jose Maria Marina MD at [facility] N/A: Spine Medtronic Spine/Ortho [id number] / / Advance Directives * Full Code [...] 9:49 AM 11/29/2019 5:05 PM Care Teams Solar Consultant Relationship Specialty Start Date End Date Savanna Feldman PA-C [address] [place] [address] PCP - General Emergency Medicine 01/27/22
--- OUTSIDE RECORDS SUMMARY | 2023-12-05 14:01 | XMS_ITS | Clinical Summary ---
[facility] Address [address], [place] [address] Care Team Providers Care Facilities Officer Name Role Phone Tip Barth APRN, CNP Primary Care Provid er Source Comments You are receiving this document as you are listed as the primary care provider,follow-up provider, or the patient has been referred to you for consultation.This is in compliance with the Medicare and[facility] EHR Incentive Program,which states Providers who transition their patient to another setting of careor provider of care or refers their patient to another provider of care shouldprovide summary care record for each transition of care or referral. Hacking the [facility] Allergies No known active allergies Medications Medication [...] Info) Description 02/12/2024 9:10 AM CDT Appointment [facility] [address] [facility] [place] [address] Jose Maria Marina MD [address] [facility] [place] [address] Health Maintenance Due Date Last Done Comments [...] CLINIC DXA REPORT Patient Name: ??Lashell Moncada Densitometer:HoloBrndstr Discovery A (S/N [id number]) TRIA BONE 5 OSTEOPOROSIS RISK FACTORS FROM [...] Recently Relevant to Health Maintenance Care Teams Facilities Officer Relationship Specialty Start Date End Date Tip Barth, MARYBETH, MORTUARY TECHNICIAN [address] [place] [address] PCP - General 10/08/10
== END 2023-12-05 13:59 | disposition home or self-care (01) ==
LOC: RAD 13:58
PROVIDERS: PCP Physician Assistant Medical; Visit Provider Physician Assistant Medical
DX: Z13.820 Encounter for screening for osteoporosis (principal); M81.0 Age-related osteoporosis without current pathological fracture
CPT/HCPCS: 77080

== ENCOUNTER 2023-12-20 07:02 | Outpatient (CLI) | payer OTHER, SELFPAY ==
--- OUTSIDE RECORDS SUMMARY | 2023-12-20 07:04 | XMS_ITS | Continuity of Care Document ---
Author Organization [facility] Address [address] [place] [address] Phone Care Team Providers Care Roll Contour Grinder Name Role Phone Kasia Alex Unavailable Unavail able Medications Medication Instructions Dosage Effective Dates (start - stop) Status Comments Do Not Prescribe [facility] pt: meds, calls , appts etc are all to be done at [facility] - Active Procedures Procedure Date PSF, Thoracic - MS PSF - Additional Level(s) - MS Laminectomy, Thoracic 1-2 Segments (Sten osis) - MS Posterior Instrumentation, 3-6 Segments - PA PSF, Thoracic PSF - Additional Level(s) Laminectomy, Thoracic 1-2 Segments (Sten osis) Posterior Instrumentation, 3-6 Segments Allograft, Morcelized, and/or BMP Autograft, From Same Incision TLIF - Includes PSF at the same level - MS HARRIS FACETC/FRMT ARTHRD LUM 1 PSF - Additional Level(s) - MS Posterior Instrumentation, 3-6 Segments - PA PEEK/ [...] [address], [place], [id number], [place] tel:[phone] [facility] [place] No Information Saw Pedroza. [facility], [address] [place] [address], [address], [place], [place], [id number], [place]. tel:[phone] Referring Provider: Jose Maria Marina, [facility] [address] [place] [address] [address], [place], [address]. tel:[phone] [facility], [address], [place], [id number], [place] tel:[phone] [facility] [place] No Information Laina Moise. [facility], [address], [place], [place], [id number], [place]. tel:[phone] Referring Provider: Jose Maria Marina, [facility] [address], [place], [address]. tel:[phone] [facility], [address], [place], [id number], [place] tel:[phone] [facility] [place] No Information Saw Pedroza. [facility], [address], [address], [place], [place], [id number], [place]. tel:[phone] Referring Provider: Jose Maria Marina, [facility] [address], [place], [address]. tel:[phone] [facility], [address], [place], [id number], [place] tel:[phone] [facility] [place] No Information Laina Moise. [facility], [address], [place], [place], [id number], [place]. tel:[phone] Referring Provider: Jose Maria Marina, [facility] [address], [place], [address]. tel:[phone] [facility], [address], [place], [id number], [place] tel:[phone] [facility] [place] No Information Jonny Ledesma. [facility], [address], [place], [place], [id number], [place]. tel:[phone] Referring Provider: Jose Maria Marina, [facility] [address], [place], [address]. tel:[phone] [facility], [address], [place], [id number], [place] tel:[phone] [facility] [place] No Information Laina Moise. [facility], [address], [place], [place], [id number], [place]. tel:[phone] Referring Provider: Jose Maria Marina, [facility] [address], [place], [address]. tel:[phone] [facility], [address], [place], [place], [id number], tel:[phone] [facility] No Information Laina Moise. [facility], [address], [place], [place], [id number], [place]. tel:[phone] Family History Family Member Type Diagnosis Age At Onset No Information Payers Payer name Insurance type Covered green party ID Authoriza ticristofer(s) [employer] Medicare Gold Choice [facility] [id number] Social History Type Description Quantity Date [...]
--- OUTSIDE RECORDS SUMMARY | 2023-12-20 07:04 | XMS_ITS | Referral Summary ---
Author Organization [place] Address [address] [facility] [place] [address] Care Team Providers Care Senior Climate Advisor Name Role Phone [facility], [facility]- Primary Care Provider Allergies No [...] Comments Blood Pressure 186/88 07/28/2019 8:35 AM TECHNOLOGIST DEVELOPMENT Pulse 77 07/27/2019 7:18 PM TECHNOLOGIST DEVELOPMENT Temperature 35.3 ??C (95.6 ??F) 07/28/2019 8:00 AM CS T Respiratory Rate 18 07/28/2019 8:00 AM TECHNOLOGIST DEVELOPMENT Oxygen Saturation 94% 07/28/2019 8:00 AM TECHNOLOGIST DEVELOPMENT Inhaled Oxygen Concentration - - Weight 65.8 kg (145 lb) 07/27/2019 3:02 AM TECHNOLOGIST DEVELOPMENT Height 151.1 cm (4' 11.5) 07/27/2019 3:02 AM CS T Body Mass Index 28.8 07/27/2019 3:02 AM TECHNOLOGIST DEVELOPMENT Plan of Treatment Not on file Procedures Procedure Name Priority Date/Time Associated Diagnosis Comments DX VERTEBRAL FRACTURE ANALYSIS Routine 10/03/2021 3:12 PM CDT OCCULT BLOOD STOOL STAT 07/27/2019 3: 34 AM TECHNOLOGIST DEVELOPMENT from Last 3 Months or Most Recently Relevant to Health Maintenance Results * (ABNORMAL) Stool: occult blood (07/27/2019 3:34 AM TECHNOLOGIST DEVELOPMENT) Occult Blood Positive(A ) NEG^Negati ve 07/27/2019 3:52 AM TECHNOLOGIST DEVELOPMENT [facility] Stool specimen (specimen) 07/27/2019 3:34 AM TECHNOLOGIST DEVELOPMENT 07/27/2019 3:46 AM TECHNOLOGIST DEVELOPMENT Danie Abrams MD LAB - STOOLS ORDERAB LES [facility] [address] [place] [address], [facility] [phone] from Last 3 Months or Most Recently Relevant to Health Maintenance Advance Directives For more information, please contact: [phone] * Full Code (Latest Code Status on File) Date Activated Date Inactivated Comments 07/28/2019 10:30 AM Question Answer Comments Code status determined by: Discussion with frank nt/legal decision maker * Full Code Date Activated Date Inactivated Comments 07/27/2019 6:30 AM 07/28/2019 10:30 AM Question Answer Comments Code status determined by: Discussion with frank nt/legal decision maker Care Teams Senior Climate Advisor Relationship Specialty Start Date End Date [facility]- [address] [place] [address] PCP - General 07/27/19
--- OUTSIDE RECORDS SUMMARY | 2023-12-20 07:04 | XMS_ITS | Clinical Summary ---
Author Organization [place] Address [address] [place] [address] Care Team Providers Care Client Care Specialist Name Role Phone [facility], [facility]- Primary Care Provider Allergies No known [...] Comments Blood Pressure 186/88 07/28/2019 8:35 AM MILK HOUSE WORKER Pulse 77 07/27/2019 7:18 PM MILK HOUSE WORKER Temperature 35.3 ??C (95.6 ??F) 07/28/2019 8:00 AM CS T Respiratory Rate 18 07/28/2019 8:00 AM MILK HOUSE WORKER Oxygen Saturation 94% 07/28/2019 8:00 AM MILK HOUSE WORKER Inhaled Oxygen Concentration - - Weight 65.8 kg (145 lb) 07/27/2019 3:02 AM MILK HOUSE WORKER Height 151.1 cm (4' 11.5) 07/27/2019 3:02 AM CS T Body Mass Index 28.8 07/27/2019 3:02 AM MILK HOUSE WORKER Plan of Treatment Health Maintenance Due [...] BLOOD STOOL STAT 07/27/2019 3: 34 AM MILK HOUSE WORKER from Last 3 Months or Most Recently Relevant to Health Maintenance Results * (ABNORMAL) Stool: occult blood (07/27/2019 3:34 AM MILK HOUSE WORKER) Occult Blood Positive(A ) NEG^Negati ve 07/27/2019 3:52 AM MILK HOUSE WORKER [facility] Stool specimen (specimen) 07/27/2019 3:34 AM MILK HOUSE WORKER 07/27/2019 3:46 AM MILK HOUSE WORKER Danie Abrams MD LAB - STOOLS ORDERAB LES [facility] [address] [place] [address], [facility] [phone] from Last 3 Months or Most Recently Relevant to Health Maintenance Advance Directives For more information, please contact: [phone] * Full Code (Latest Code Status on File) Date Activated Date Inactivated Comments 07/28/2019 10:30 AM Question Answer Comments Code status determined by: Discussion with patie nt/legal decision maker * Full Code Date Activated Date Inactivated Comments 07/27/2019 6:30 AM 07/28/2019 10:30 AM Question Answer Comments Code status determined by: Discussion with patie nt/legal decision maker Care Teams Client Care Specialist Relationship Specialty Start Date End Date [facility]- [address] [place] [address] PCP - General 07/27/19
--- OUTSIDE RECORDS SUMMARY | 2023-12-20 07:05 | XMS_ITS | Clinical Summary ---
Author Organization [employer] [facility] Address [place], [place] [address] Care Team Providers Care Schedule Hanger Name Role Phone Savanna Feldman PA-C Primary Care Provider [phone] Allergies No known active allergies Medications Medication [...] 06/29/2021, 04/28/2021 Medical Devices Implanted Type Area Vegetable Grader Device Identifier Shelf Expiration Date Model / Serial / Lot Bone Matrix 6cc [place] Dbf Putty Db - [id number] Implanted:Qty: 1 on 11/24/2019 by Yue Rodrigues MD at [facility] N/A: Lumbar Vertebrae Medtronic Spine/Ortho 08/11/2021 [id number]# / [id number] / Screw Spinal 10.5x90mm Va Cnnltd Tc - [id number] Implanted:Qty: 1 on 11/24/2019 by Jose Maria Marina MD at [facility] N/A: Lumbar Vertebrae Medtronic Spine/Ortho 11/18/2026 [id number]# / / [id number] Screw Spinal 10.5x90mm Va Cnnltd Tc - [id number] Implanted:Qty: 1 on 11/24/2019 by Jose Maria Marina MD at [facility] N/A: Lumbar Vertebrae Medtronic Spine/Ortho 11/18/2026 [id number]# / / [id number] Spacer Lmbr Lg 12mm 8deg Perimeter Alif Peek - [id number] Implanted:Qty: 1 on 11/24/2019 by Jose Maria Marina MD at [facility] N/A: Lumbar Vertebrae Medtronic Spine/Ortho [id number]# / / [id number] Spacer Lmbr Lg 12mm 8deg Perimeter Alif Peek - [id number] Implanted:Qty: 1 on 11/24/2019 by Jose Maria Marina MD at [facility] N/A: Lumbar Vertebrae Medtronic Spine/Ortho [id number]# / / [id number] Screw Spinal 10.5x90mm Va Cnnltd Tc - [id number] Implanted:Qty: 2 on 11/24/2019 by Jose Maria Marina MD at [facility] N/A: Lumbar Vertebrae Medtronic Spine/Ortho [id number]# / / [id number] Screw Lmbr Post 6.5x45mm Solera 5.5/6 Va Cocr - [id number] Implanted:Qty: 6 on 11/24/2019 by Jose Maria Marina MD at [facility] N/A: Lumbar Vertebrae Medtronic Spine/Ortho [id number]# / / Dura Neuro 1x3in Durepair Sut - [id number] Implanted:Qty: 1 on 11/24/2019 by Jose Maria Marina MD at [facility] N/A: Lumbar Vertebrae Medtronic [employer] Technologies 09/04/2020 [id number]# / / [id number] Dura Neuro 5ml Duraseal - [id number] Implanted:Qty: 1 on 11/24/2019 by Jose Maria Marina MD at [facility] N/A: Lumbar Vertebrae Integra [employer] Marivel 06/06/2020# / / [id number] Screw Lmbr Post 7.5x45mm Solera 5.5/6 Va Cocr - [id number] Implanted:Qty: 2 on 11/24/2019 by Jose Maria Marina MD at [facility] N/A: Lumbar Vertebrae Medtronic Spine/Ortho [id number]# / / Bone Matrix 6cc [place] Dbf Putty Dbm - [id number] Implanted:Qty: 1 on 11/24/2019 by Yue Rodrigues MD at [facility] N/A: Lumbar Vertebrae Medtronic Spine/Ortho 08/11/2021 [id number]# / [id number] / Screw Lmbr Post 7.5x40mm Solera 5.5/6 Va Cocr - [id number] Implanted:Qty: 2 on 11/24/2019 by Jose Maria Marina MD at [facility] N/A: Lumbar Vertebrae Medtronic Spine/Ortho [id number]# / / John Lmbr [id number] Legacy 5.5 Cvd Titnm - [id number] Implanted:Qty: 1 on 11/24/2019 by Jose Maria Marina MD at [facility] N/A: Lumbar Vertebrae Medtronic Spine/Ortho 869-021# / / Bone Matrix 6cc [place] Dbf Putty Dbm - [id number] Implanted:Qty: 1 on 11/24/2019 by Yue Rodrigues MD at [facility] N/A: Lumbar Vertebrae Medtronic Spine/Ortho 08/23/2021 [id number]# / [id number] / Bone 1-4mm 30cc Medtronic Chips Canclls Frozen - [id number] Implanted:Qty: 1 on 11/24/2019 by Yue Rodrigues MD at [facility] N/A: Lumbar Vertebrae Medtronic Spine/Ortho 12/20/2023 [id number]# / [id number] / [id number] Bone 1-4mm 60cc Medtronic Chips Canclls Frozen - [id number] Implanted:Qty: 1 on 11/24/2019 by Yue Rodrigues MD at [facility] N/A: Lumbar Vertebrae Medtronic Spine/Ortho 04/08/2024 [id number]# / [id number] / [id number] Spacer Lmbr Lg 14mm 8deg Perimeter Alif Peek - [id number] Implanted:Qty: 1 on 11/24/2019 by Jose Maria Marina MD at [facility] N/A: Lumbar Vertebrae Medtronic Spine/Ortho 11/20/2025 [id number]# / / [id number] Spacer Lmbr Lg 12mm 8deg Perimeter Alif Peek - [id number] Implanted:Qty: 1 on 11/24/2019 by Jose Maria Marina MD at [facility] N/A: Lumbar Vertebrae Medtronic Spine/Ortho 08/26/2027 [id number]# / / [id number] Spacer Lmbr Lg 12mm 8deg Perimeter Alif Peek - [id number] Implanted:Qty: 1 on 11/24/2019 by Jose Maria Marina MD at [facility] N/A: Lumbar Vertebrae Medtronic Spine/Ortho 06/04/2025 [id number]# / / [id number] Description:anterior Bone 1-4mm 30cc Medtronic Chips Canclls Frozen - [id number] Implanted:Qty: 1 on 11/24/2019 by Jose Maria Marina MD at [facility] N/A: Lumbar Vertebrae Medtronic Spine/Ortho 12/19/2023 [id number]# / [id number] / [id number] Set Screw Lmbr Ant 5.5mm Solera Break Off - [id number] Implanted:Qty: 12 on 11/24/2019 by Jose Maria Marina MD at [facility] Explanted:Qty: 4 on 01/09/2022 by Jose Maria Marina MD at [facility] N/A: Lumbar Vertebrae Medtronic Spine/Ortho [id number]# / / Bone 1-4mm 60cc Medtronic Chips Canclls Frozen - [id number] Implanted:Qty: 1 on 01/09/2022 by Jose Maria Marina MD at [facility] Lumbar Vertebrae Medtronic Spine/Ortho 03/16/2026 [id number] / [id number] / [id number] Bone Matrix 6cc [place] Dbf Putty Dbm - [id number] Implanted:Qty: 1 on 01/09/2022 by Jose Maria Marina MD at [facility] Lumbar Vertebrae Medtronic Spine/Ortho 09/06/2023 [id number] / [id number] / Spacer Spinal 57b89cl Adaptix - [id number] Implanted:Qty: 1 on 01/09/2022 by Jose Maria Marina MD at [facility] Lumbar Vertebrae Medtronic Spine/Ortho 08/22/2028 [id number] / / [id number] Cnnctr Lmbr 5.5x5.5mm John Connect Variable Titnm [place] - [id number] Implanted:Qty: 3 on 01/09/2022 by Jose Maria Marina MD at [facility] Lumbar Vertebrae Medtronic Spine/Ortho [id number] / / Set Screw Lmbr Std John Connection Titnm - [id number] Implanted:Qty: 6 on 01/09/2022 by Jose Maria Marina MD at [facility] Lumbar Vertebrae Medtronic Spine/Ortho [id number] / / Screw Lmbr Post 5.5x40mm Solera 5.5/6 Va Cocr - [id number] Implanted:Qty: 1 on 01/09/2022 by Jose Maria Marina MD at [facility] Lumbar Vertebrae Medtronic Spine/Ortho [id number] / / John Lmbr 120x5.5mm Solera 5.5/6 Cvd Co Cr - [id number] Implanted:Qty: 2 on 01/09/2022 by Jose Maria Marina MD at [facility] Lumbar Vertebrae Medtronic Spine/Ortho [id number] / / Set Screw Lmbr Ant 5.5mm Solera Break Off - [id number] Implanted:Qty: 12 on 01/09/2022 by Jose Maria Marina MD at [facility] Explanted:Qty: 2 on 02/12/2022 by Jose Maria Marina MD at [facility] Lumbar Vertebrae Medtronic Spine/Ortho [id number] / / Screw Lmbr Post 6.5x40mm Solera 5.5/6 Va Cocr - [id number] Implanted:Qty: 7 on 01/09/2022 by Jose Maria Marina MD at [facility] Explanted:Qty: 1 on 02/12/2022 by Jose Maria Marina MD at [facility] Lumbar Vertebrae Medtronic Spine/Ortho [id number] / / Bone Matrix 6cc [place] Dbf Putty [facility] - [id number] Implanted:Qty: 1 on 02/12/2022 by Jose Maria Marina MD at [facility] N/A: Spine Medtronic Spine/Ortho 12/29/2023 [id number] / [id number] / Bone 1-4mm 30cc Medtronic Chips Canclls Frozen - [id number] Implanted:Qty: 1 on 02/12/2022 by Jose Maria Marina MD at [facility] N/A: Spine Medtronic Spine/Ortho 07/31/2026 [id number] / [id number] / [id number] Bone Matrix 10cm Mastergraft Strip Db - [id number] Implanted:Qty: 1 on 02/12/2022 by Jose Maria Marina MD at [facility] N/A: Spine Medtronic Spine/Ortho 04/06/2024 [id number] / / [id number] [place] Spinal 5.5/6.0mm Cd Horizon Solera Variable Ang - [id number] Implanted:Qty: 1 on 02/12/2022 by Jose Maria Marina MD at [facility] N/A: Spine Medtronic Spine/Ortho 10/31/2026 [id number] / / [id number] Bone Matrix Lg Ii Infuse Bmp - [id number] Implanted:Qty: 1 on 02/12/2022 by Jose Maria Marina MD at [facility] N/A: Spine Medtronic Spine/Ortho 03/07/2023 [id number] / / [id number] Set Screw Lmbr Ant 5.5mm Solera Break Off - [id number] Implanted:Qty: 5 on 02/12/2022 by Jose Maria Marina MD at [facility] N/A: Spine Medtronic Spine/Ortho [id number] / / Cnnctr Lmbr 5.5x5.5mm John Connect Variable Titnm [place] - [id number] Implanted:Qty: 4 on 02/12/2022 by Jose Maria Marina MD at [facility] N/A: Spine Medtronic Spine/Ortho [id number] / / Set Screw Lmbr Std John Connection Titnm - [id number] Implanted:Qty: 2 on 02/12/2022 by Jose Maria Marina MD at [facility] N/A: Spine Medtronic Spine/Ortho [id number] / / John Lmbr 70x5.5mm Solera 5.5/6 Cvd Titnm - [id number] Implanted:Qty: 2 on 02/12/2022 by Jose Maria Marina MD at [facility] N/A: Spine Medtronic Spine/Ortho [id number] / / Screw Lmbr Post 6.5x40mm Solera 5.5/6 Va Cocr - [id number] Implanted:Qty: 4 on 02/12/2022 by Jose Maria Marina MD at [facility] N/A: Spine Medtronic Spine/Ortho [id number] / / Advance Directives * Full Code [...] 9:49 AM 11/29/2019 5:05 PM Care Teams Schedule Hanger Relationship Specialty Start Date End Date Savanna Feldman PA-C [address] [place] [address] PCP - General Emergency Medicine 01/27/22
--- OUTSIDE RECORDS SUMMARY | 2023-12-20 07:05 | XMS_ITS | Clinical Summary ---
[facility] Address [address] [address] Care Team Providers Care Ready To Wear Department Manager Name Role Phone Tip Barth APRN, CNP Primary Care Provid er Source Comments You are receiving this document as you are listed as the primary care provider,follow-up provider, or the patient has been referred to you for consultation.This is in compliance with the Medicare andWilson Healthcaid EHR Incentive Program,which states Providers who transition their patient to another setting of careor provider of care or refers their patient to another provider of care shouldprovide summary care record for each transition of care or referral. [facility], [employer] Allergies No known active allergies Medications Medication [...] Info) Description 02/12/2024 9:10 AM CDT Appointment [facility] [address] [facility] [place] [address] Jose Maria Marina MD [address] [facility] [place] [address] Health Maintenance Due Date Last Done Comments [...] CLINIC DXA REPORT Patient Name: ??Lashell Moncada Densitometer:HoloJ.A.B[employer]s Freel[employer] World Discovery A (S/N [id number]) TRIA BONE 5 OSTEOPOROSIS RISK FACTORS FROM [...] Recently Relevant to Health Maintenance Care Teams Ready To Wear Department Manager Relationship Specialty Start Date End Date Tip Barth, MARYBETH, FUEL EFFICIENT AIRCRAFT DESIGNER [address] [address] [place] [address] PCP - General 10/08/10
--- NOTE | 2023-12-20 07:15 | CRLHL7_ITS ---
For Patients: As a result of the 21st Century Cures Act, medical imaging exams and procedure reports are released immediately into your electronic medical record. You may view this report before your referring provider. If you have questions, please contact your health care provider. INDICATION: Bilateral edema. 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 History of DVT 06/2023. Not on anticoagulation. COMPARISON: Report of the ultrasound of the venous drainage of the left lower extremity from 06/19/2023. FINDINGS: Ultrasound of the venous drainage of both lower extremities was performed using real-time galloway scale imaging (B mode 2D), color flow Doppler and spectral analysis. On the right, there is partial thrombosis of the distal popliteal vein and the tibial peroneal trunk. There is occlusive thrombosis of 1 of the paired peroneal veins and into 1 of the paired posterior tibial veins, probably acute. There is no evidence of deep venous thrombosis more superiorly in the right lower extremity. There is normal antegrade flow from the superior popliteal vein superiorly through the common femoral vein in both legs. There is normal augmentation and compressibility of these veins. The right greater saphenous vein is widely patent. On the left, there is partial thrombosis of 1 of the paired left peroneal veins, similar in appearance to the previous study. There is no evidence of deep venous thrombosis. There is normal antegrade flow from the posterior tibial and popliteal veins superiorly through the common femoral vein in both legs. There is normal augmentation and compressibility of these veins. There is partial thrombosis of the left greater saphenous vein from the inferior thigh through the knee, with patent vein superiorly and inferiorly. This is slightly different from the previous study where there was occlusive thrombosis of the mid greater saphenous vein. There is a Minor`s cyst in the left popliteal fossa measuring 6.5 x 1.7 x 3.9 centimeters. IMPRESSION: 1. Partial thrombosis of the right distal popliteal vein and the tibial peroneal trunk. 2. Occlusive thrombosis of 1 of the paired peroneal veins and into 1 of the paired posterior tibial veins, probably acute. 3. 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 4. Partial thrombosis of the distal left greater saphenous vein from the inferior thigh through the knee, slightly different from the mild superficial venous thrombosis seen previously. Dictated by Danilo Blanco MD @ 12/22/2023 11:38:33 PM (Electronically Signed)
== END 2023-12-20 07:03 | disposition home or self-care (01) ==
LOC: US 07:03
PROVIDERS: PCP Physician Assistant Medical; Visit Provider Physician Assistant Medical
DX: I82.452 Acute embolism and thrombosis of left peroneal vein (principal); I82.5Z2 Chronic embolism and thrombosis of unspecified deep veins of left distal lower extremity; I82.4Y2 Acute embolism and thrombosis of unspecified deep veins of left proximal lower extremity
CPT/HCPCS: 93970

== ENCOUNTER 2024-11-03 09:45 | Outpatient (RCR) | payer MEDICARE, SELFPAY | END 2024-11-03 10:23 | disposition home or self-care (01) | PROVIDERS: PCP Physician Assistant Medical; Visit Provider Orthopaedic Surgery Sports Medicine | DX: M76.01 Gluteal tendinitis, right hip (principal); M76.891 Other specified enthesopathies of right lower limb, excluding foot; Z51.89 Encounter for other specified aftercare | CPT/HCPCS: 97110; 97140; 97161 ==

== ENCOUNTER 2024-11-26 14:01 | Outpatient (CLI) | payer MEDICARE, SELFPAY | END 2024-11-26 14:02 | disposition home or self-care (01) | PROVIDERS: PCP Physician Assistant Medical; Visit Provider Physician Assistant Medical | DX: Z00.01 Encounter for general adult medical examination with abnormal findings (principal); F41.8 Other specified anxiety disorders; I10 Essential (primary) hypertension; E78.5 Hyperlipidemia, unspecified; R82.90 Unspecified abnormal findings in urine | CPT/HCPCS: 80053; 80061; 84443; 87086 ==